=== PATIENT | male | born 1935 | race Caucasian/White ===

== ENCOUNTER 2017-07-10 10:12 | Emergency (ER) | payer MEDICARE, BC ==
[2017-07-10] MEDS ORDERED: METHYLPREDNISOLONE PF 125MG/VIAL IVP ONE (10:50)
[2017-07-10] MEDS ORDERED: DIPHENHYDRAMINE HCL IV 50 MG/ML VIAL IVP ONE (10:51)
[2017-07-10 11:33] LABS: EOS % 7.6 % (0-6); GRAN % 57.9 % (47-80); HEMATOCRIT 44.8 % (42.0-52.0); HEMOGLOBIN 14.7 gm/dl (14.0-18.0); LYMPH % 22.8 % (16-45); MEAN CELL VOLUME 93.7 fl (81-97); MEAN CORPUSCULAR HEMOGLOBIN 30.8 pg (27-33); MEAN CORPUSCULAR HGB CONC 32.8 g/dl (32-36); MEAN PLATELET VOLUME 8.5 fl (7.4-10.4); MONO % 11.7 % (0-9); PLATELET COUNT 233 K/uL (130-400); RED BLOOD COUNT 4.78 M/uL (4.40-5.70); WHITE BLOOD COUNT W/O DIFF 6.6 K/uL (4.2-12.2)
[2017-07-10 11:48] LABS: URINE APPEARANCE CLEAR; URINE BILIRUBIN NEGATIVE (NEGATIVE); URINE BLOOD MODERATE (NEGATIVE); URINE COLOR YELLOW; URINE GLUCOSE (UA) NEGATIVE (NEGATIVE); URINE KETONE NEGATIVE (NEGATIVE); URINE LEUKOCYTE ESTERASE MODERATE (NEGATIVE); URINE NITRITE NEGATIVE (NEGATIVE); URINE PROTEIN NEGATIVE (NEGATIVE); URINE UROBILINOGEN 0.2 E.U./dL (0.20 - 1.00)
[2017-07-10 12:00] LABS: URINE EPITHELIAL CELLS 0 - 2 (FEW); URINE WBC 0 - 2 (0-2/hpf)
[2017-07-10 12:21] LABS: ERYTHROCYTE SEDIMENTATION RATE 1 mm/hr (0-20)
[2017-07-10 12:33] LABS: BLOOD UREA NITROGEN 19 mg/dL (8-23); EST GLOMERULAR FILTRATION RATE > 60 mL/min; GLUCOSE,RANDOM 103 mg/dL (74-109)
[2017-07-10 12:34] LABS: ALB/GLOB RATIO 1.6 (1.1-1.8); ALKALINE PHOSPHATASE 41 U/L (40-129); ALT/SGPT 22 U/L (<41); AST/SGOT 20 U/L (10.0-50.0); TOTAL PROTEIN 6.5 g/dL (6.6-8.7)
--- NOTE | 2017-07-10 12:35 | Emergency Department Record ---
History of Present Illness - General Chief complaint: Rash Stated complaint: HIVES Time Seen by Provider: 07/10/17 10:45 Source: Patient Mode of Arrival: Ambulatory Limitations: No limitations - History of Present Illness Initial comments: pt has a rash on his palms and body. pt just finished a course of augmentin. pt is known to be allergic to penicillins.eriberto is itchy MD complaint: Rash Onset/Timin -: Days(s) Location: Generalized, L hand, R hand Severity: Moderate Quality: Aching Consistency: Constant Associated symptoms: Denies other symptoms - Related Data Home Medications Medication Instructions Recorded Confirmed Last Taken Ascorbic Acid [Vitamin C] 1,000 mg PO DAILY 07/10/17 07/10/17 1 Day Ago ~07/09/17 Aspirin 81 mg PO DAILY 07/10/17 07/10/17 1 Day Ago ~07/09/17 Cholecalciferol (Vitamin D3) 2,000 unit PO DAILY 07/10/17 07/10/17 1 Day Ago [Vitamin D3] ~07/09/17 Cranberry Fruit Extract [Cranberry] 500 mg PO DAILY 07/10/17 07/10/17 1 Day Ago ~07/09/17 Esomeprazole Magnesium [Nexium] 40 mg PO DAILY 07/10/17 07/10/17 1 Day Ago ~07/09/17 Lisinopril [Zestril] 2.5 mg PO DAILY 07/10/17 07/10/17 1 Day Ago ~07/09/17 Lorazepam [Ativan] 0.5 mg PO DAILY PRN 07/10/17 07/10/17 1 Day Ago ~07/09/17 Metformin HCl [Metformin HCl ER] 500 mg PO DAILY 07/10/17 07/10/17 1 Day Ago ~07/09/17 Rosuvastatin Calcium [Crestor] 2.5 mg PO DAILY 07/10/17 07/10/17 1 Day Ago ~07/09/17 Previous Rx's Medication Instructions Recorded Methylprednisolone [Medrol Dose 4 mg PO ASDIR #1 tab.ds.pk 07/10/17 Pack] Allergies Allergy/AdvReac Type Severity Reaction Status Date / Time amoxicillin [From Augmentin] Allergy RASH Verified 07/10/17 10:28 clavulanic acid Allergy RASH Verified 07/10/17 10:28 [From Augmentin] Penicillins Allergy RASH Verified 07/10/17 10:28 Travel Screening - Travel/Exposure Within Last 30 Days Have you traveled within the last 30 days?: No - Travel/Exposure Within Last Year Have you traveled outside the [place] in the last year?: No - Additonal Travel Details Have you been exposed to anyone with a communicable illness?: No - Travel Symptoms Symptom Screening: None Review of Systems Reviewed: No additional complaints except as noted below Constitutional: Reports: As per HPI. Denies: Chills, Fever, Malaise, Night sweats, Weakness, Weight change Eyes: Reports: As per HPI. Denies: Eye discharge, Eye pain, Photophobia, Vision change ENT: Reports: As per HPI. Denies: Congestion, Dental pain, Ear pain, Epistaxis , Hearing loss, Throat pain Respiratory: Reports: As per HPI. Denies: Cough, Dyspnea, Hemoptysis, Stridor, Wheezes Cardiovascular: Reports: As per HPI. Denies: Arrhythmia, Chest pain, Dyspnea on exertion, Edema, Murmurs, Orthopnea, Palpitations, Paroxysmal nocturnal dyspnea, Rheumatic Fever, Syncope Endocrine: Reports: As per HPI. Denies: Fatigue, Heat or cold intolerance, Polydipsia, Polyuria Gastrointestinal: Reports: As per HPI. Denies: Abdominal pain, Constipation, Diarrhea, Hematemesis, Hematochezia, Melena, Nausea, Vomiting Genitourinary: Reports: As per HPI. Denies: Dysuria, Frequency, Hematuria, Incontinence, Retention, Testicular pain, Testicular mass, Urgency Musculoskeletal: Reports: As per HPI. Denies: Arthralgia, Back pain, Gout, Joint swelling, Myalgia, Neck pain Skin: Reports: As per HPI. Denies: Bruising, Change in color, Change in hair/ nails, Lesions, Pruritus, Rash Neurological: Reports: As per HPI. Denies: Abnormal gait, Confusion, Headache, Numbness, Paresthesias, Seizure, Tingling, Tremors, Vertigo, Weakness Psychiatric: Reports: As per HPI. Denies: Anxiety, Auditory hallucinations, Depression, Homicidal thoughts, Suicidal thoughts, Visual hallucinations Hematological/Lymphatic: Reports: As per HPI. Denies: Anemia, Blood Clots, Easy bleeding, Easy bruising, Swollen glands Past Medical History - SOCIAL HISTORY Smoking Status: Never smoker Alcohol Use: None Drug Use: None - RESPIRATORY Hx Respiratory Disorders: No - CARDIOVASCULAR Hx Cardio Disorders: No - NEURO Hx Neuro Disorders: No - GI Hx Crohn's Disease: Yes Hx Reflux: Yes Hx Ulcer: Yes - Hx Bladder Problem: Yes ([place]) Comment:: left renal stent and urostomy - ENDOCRINE Hx Diabetes: Yes Hx Thyroid Disease: No - MUSCULOSKELETAL Hx Arthritis: Yes - PSYCH Hx Psych Problems: No - HEMATOLOGY/ONCOLOGY Hx Cancer: Yes (Bladder) Family Medical History Any Significant Family History?: Yes Physical Exam - General General Appearance: Alert, Oriented x3, Cooperative, Mild distress - Head Head exam: Normal inspection - Eye Eye exam: Normal appearance, PERRL, EOMI Pupils: Normal accommodation - ENT ENT exam: Normal exam, Mucous membranes moist, Normal external ear exam, Normal orophraynx Ear exam: Normal external inspection. negative: External canal tenderness Nasal Exam: Normal inspection. negative: Discharge, Sinus tenderness Mouth exam: Normal external inspection, Tongue normal Teeth exam: Normal inspection. negative: Dental caries Throat exam: Normal inspection. negative: Tonsillar erythema, Tonsillar exudate - Neck Neck exam: Normal inspection, Full ROM. negative: Tenderness - Respiratory Respiratory exam: Normal lung sounds bilaterally. negative: Respiratory distress - Cardiovascular Cardiovascular Exam: Regular rate, Normal rhythm, Normal heart sounds - GI/Abdominal GI/Abdominal exam: Soft, Normal bowel sounds. negative: Tenderness - Rectal Rectal exam: Deferred - exam: Deferred - Extremities Extremities exam: Normal inspection, Full ROM, Normal capillary refill. negative: Tenderness - Back Back exam: Reports: Normal inspection, Full ROM. Denies: Muscle spasm, Rash noted, Tenderness - Neurological Neurological exam: Alert, CN II-XII intact, Normal gait, Oriented X3 - Psychiatric Psychiatric exam: Normal affect, Normal mood - Skin Skin exam: Dry, Intact, Normal color, Warm Course Vital Signs 07/10/17 10:19 Temperature 97.4 F L Pulse Rate 90 Respiratory 18 Rate Blood Pressure 167/96 Pulse Ox 95 Medical Decision Making - Lab Data Result diagrams: 07/10/17 10:52 07/10/17 11:20 Lab Results 07/10/17 07/10/17 Range/Units 10:52 11:38 WBC 6.6 (4.2-12.2) K/uL RBC 4.78 (4.40-5.70) M/uL Hgb 14.7 (14.0-18.0) gm/dl Hct 44.8 (42.0-52.0) % MCV 93.7 (81-97) fl MCH 30.8 (27-33) pg MCHC 32.8 (32-36) g/dl RDW 14.0 (11.5-14.5) % Plt Count 233 (130-400) K/uL MPV 8.5 (7.4-10.4) fl Gran % 57.9 (47-80) % Lymphocytes % 22.8 (16-45) % Monocytes % 11.7 H (0-9) % Eosinophils % 7.6 H (0-6) % Basophils % 0.0 (0-6) % ESR 1 (0-20) mm/hr Urine Color Yellow Urine Appearance Clear Urine pH 7.0 (5.0-8.0) Ur Specific Kimball 1.010 (1.002-1.030) Urine Protein Negative (NEGATIVE) Urine Glucose (UA) Negative (NEGATIVE) Urine Ketones Negative (NEGATIVE) Urine Blood Moderate (NEGATIVE) Urine Nitrite Negative (NEGATIVE) Urine Bilirubin Negative (NEGATIVE) Urine Urobilinogen 0.2 (0.20 - 1.00) E.U./dL Ur Leukocyte Esterase Moderate H (NEGATIVE) Urine RBC 3 - 6 (NONE SEEN) Urine WBC 0 - 2 (0-2/hpf) Ur Epithelial Cells 0 - 2 (FEW) Disposition Disposition: Discharge Clinical Impression: Drug eruption, Erythema multiforme Disposition: Home, Self-Care Condition: (1) Good Instructions: Adverse Drug Reaction (ED) Additional Instructions: follow up with family doctor. return sooner if worse. benadryl every 6 hrs as needed Prescriptions: Methylprednisolone [Medrol Dose Pack] 4 mg PO ASDIR #1 tab.ds.pk Forms: Patient Portal Access Quality - Quality Measures Quality Measures: N/A - Blood Pressure Screening Does Patient Have Any of the Following: No Blood Pressure Classification: Hypertensive Reading Systolic Measurement: 167 Diastolic Measurement: 96 Screening for High Blood Pressure: < First Hypertensive BP, F/U Documented > [ [id number]] First Hypertensive Follow-up Interventions: Follow-up with rescreen GT 1 day and LT 4 weeks.
== END 2017-07-10 12:49 | disposition home or self-care (01) ==
LOC: ER 10:12
DX: L27.0 Generalized skin eruption due to drugs and medicaments taken internally (principal); L51.9 Erythema multiforme, unspecified; T36.0X5A Adverse effect of penicillins, initial encounter
CPT/HCPCS: 80053; 81001; 85025; 85651; 96374; 96375; 99284; J1200; J2930

== ENCOUNTER 2019-07-22 07:41 | Inpatient (IN) | payer MEDICARE, BC ==
[2019-07-22] MEDS ORDERED: 0.9% SODIUM CHLORIDE 250ML BAG IV ONE (07:55)
[2019-07-22] MEDS ORDERED: ACETAMINOPHEN 1,000 MG/100 ML BTL IVPB ONE (07:57)
--- NOTE | 2019-07-22 08:07 | Emergency Department Record ---
History of Present Illness - General Stated Complaint: BACK PAIN Time Seen by Provider: 07/22/19 07:43 Source: Patient, Family () Mode of Arrival: Ambulatory Limitations: No limitations - History of Present Illness Initial Comments: Pt with from home for complaint of left lower back pain onset at 4 AM. Unable to sleep since onset. Up walking unable to find a comfortable position. No radiation of the pain. Pt has hx of bladder cancer with urostomy for 18 years. No current cancer treatments. Has stent in left ureter that is repalced every 4 months with next scheduled in August with his urologist in [place]. Pain is sharp, no meds prior to coming to the ED. Pt states he is "constipated" with last good BM 2 days ago. Had suspected kidney stone 3 days ago with blood in urine and right flank pains. Had CT here with right hydronephrosis. Pt states he felt he passed the stone as he was pain free the past two days. No narcotic pain meds. Now pain on the left. No fever, vomiting. Onset/Timin -: Days(s) Similar Symptoms Previously: No Place: Home Radiation: None Severity: Severe Severity scale (1-10): 10 Quality: Aching, Sharp Consistency: Constant Improves With: Sitting upright Worsens With: Supine Context: Unknown Associated Symptoms: Denies other symptoms - Related Data Home Medications Medication Instructions Recorded Confirmed Last Taken Furosemide [Lasix] 20 mg PO ASDIR 07/22/19 07/22/19 Unknown Potassium Chloride 20 meq PO ASDIR 07/22/19 07/22/19 Unknown Previous Rx's Medication Instructions Recorded Ciprofloxacin HCl [Cipro] 500 mg PO Q12HR 7 Days #14 tablet 07/22/19 Levofloxacin [Levaquin Tab] 500 mg PO DAILY 7 Days #7 tab 07/22/19 Allergies Allergy/AdvReac Type Severity Reaction Status Date / Time amoxicillin [From Augmentin] Allergy RASH Verified 07/10/17 10:28 clavulanic acid Allergy RASH Verified 07/10/17 10:28 [From Augmentin] Penicillins Allergy RASH Verified 07/10/17 10:28 Travel Screening - Travel/Exposure Within Last 30 Days Have you traveled within the last 30 days?: No Review of Systems Constitutional: Denies: Chills, Fever, Weakness Eyes: Denies: Eye pain, Vision change ENT: Denies: Congestion, Throat pain Respiratory: Denies: Cough, Dyspnea Cardiovascular: Denies: Chest pain, Syncope Endocrine: Denies: Fatigue, Polyuria Gastrointestinal: Reports: Constipation. Denies: Abdominal pain, Diarrhea, Hematemesis, Nausea, Vomiting Genitourinary: Denies: Dysuria, Hematuria Musculoskeletal: Reports: As per HPI, Back pain Skin: Denies: Bruising Neurological: Denies: Confusion, Headache Psychiatric: Denies: Anxiety Hematological/Lymphatic: Denies: Anemia Past Medical History - SOCIAL HISTORY Smoking Status: Never smoker Alcohol Use: None Drug Use: None - RESPIRATORY Hx Respiratory Disorders: No - CARDIOVASCULAR Hx Cardio Disorders: No - NEURO Hx Neuro Disorders: No - GI Hx GI Disorders: Yes Hx Crohn's Disease: Yes Hx Reflux: Yes Hx Ulcer: Yes - Hx Genitourinary Disorders: Yes Hx Bladder Problem: Yes ([place]) Comment:: left renal stent and urostomy - ENDOCRINE Hx Endocrine Disorders: Yes Hx Diabetes: Yes Hx Thyroid Disease: No - MUSCULOSKELETAL Hx Musculoskeletal Disorders: Yes Hx Arthritis: Yes - PSYCH Hx Psych Problems: No - HEMATOLOGY/ONCOLOGY Hx Hematology/Oncology Disorders: Yes Hx Cancer: Yes (Bladder) Hx Chemotherapy: No Hx Radiation Therapy: No Family Medical History Any Significant Family History?: No Physical Exam - General General Appearance: Alert, Oriented x3, Cooperative, Moderate distress Limitations: No limitations - Head Head exam: Atraumatic, Normocephalic - Eye Eye exam: Normal appearance, PERRL - ENT ENT exam: Normal exam, Mucous membranes moist, Normal orophraynx Ear exam: Normal external inspection Nasal Exam: Normal inspection Mouth exam: negative: Drooling, Muffled voice Teeth exam: Normal inspection - Neck Neck exam: Normal inspection, Full ROM. negative: Lymphadenopathy - Respiratory Respiratory exam: Normal lung sounds bilaterally. negative: Respiratory distress, Rhonchi, Wheezes - Cardiovascular Cardiovascular Exam: Regular rate, Normal rhythm. negative: Tachycardia Peripheral Pulses: 2+: Radial (R), Radial (L) - GI/Abdominal GI/Abdominal exam: Soft, Normal bowel sounds. negative: Distended, Guarding, Rebound, Tenderness - exam: Other (urosomy with bag in right midline lower abd. Urine clear without gross blood. ) - Extremities Extremities exam: Normal inspection. negative: Tenderness - Back Back exam: Reports: CVA tenderness (L), Tenderness, Other (tender L3 lateral muscles without rash. ). Denies: CVA tenderness (R), Rash noted - Neurological Neurological exam: Alert, Oriented X3, Other (gait stable but pt side bent to left due to pain. ). negative: Motor sensory deficit Course Vital Signs 07/22/19 07:46 Respiratory 24 Rate - Reevaluation(s) Reevaluation #1: 07/22/19 08:11 seen with and RN. Pain in left flank, no abd pain. XRay and US ordered along with labs and UA. Pain meds provided prior to heading to radiology. Reevaluation #2: 07/22/19 09:21 recheck: Tylenol IV with some relief but pain is returning. Spoke with son in law and his physician Dr. Muñiz and reviewed findings. Dr. Ohara states he tolerates Toradol well. 30 mg IV toradol ordered. Await US report. XRay with large stool. Reevaluation #3: 07/22/19 10:44 P testing comfortable. US report shows no evidence of hydro right or left. XRay with increased stool and stent in place on left. Await return call from pt's [employer] Dr. Falk. Plan is for home with Mag Cit for constipation and Cipro for UTI. Follow with Dr. Falk in office. Reevaluation #4: 07/22/19 11:[address] Muñiz and he believes pt is allergic to Cipro. Recommends Levaquin. Will change script. Home with follow up. Medical Decision Making - Lab Data Result diagrams: 07/22/19 08:00 07/22/19 08:00 Disposition Disposition: Discharge Clinical Impression: Back pain Qualifiers: Back pain location: low back pain Chronicity: acute Back pain laterality: left Sciatica presence: without sciatica Qualified Code(s): M54.5 - Low back pain UTI (urinary tract infection) Qualifiers: Urinary tract infection type: acute cystitis Hematuria presence: without hematuria Qualified Code(s): N30.00 - Acute cystitis without hematuria Disposition: Home, Self-Care Condition: (2) Stable Instructions: Constipation (ED), Urinary Tract Infection in Men (ED), Low Back Strain (ED) Additional Instructions: Home. Follow up with Dr. Falk in 2-3 days Take Levaquin 500mg once a day for 7 days. (DO NOT take Cipro) Drink full bottle of Mag Citrate at home then drink two large glasses of water over the next few hours for constipation. Take tylenol or advil for back pains. Return to the ED as needed Prescriptions: Ciprofloxacin HCl [Cipro] 500 mg PO Q12HR 7 Days #14 tablet Levofloxacin [Levaquin Tab] 500 mg PO DAILY 7 Days #7 tab Quality - Quality Measures Quality Measures: N/A - Blood Pressure Screening Does Patient Have Any of the Following: No Blood Pressure Classification: Hypertensive Reading Systolic Measurement: 203 Diastolic Measurement: 127 Screening for High Blood Pressure: Patient Exclusion, Hx of HTN [G9944]
[2019-07-22 08:20] LABS: BASO % 0.1 % (0-6); EOS % 0.9 % (0-6); GRAN % 73.9 % (47-80); HEMOGLOBIN 14.9 gm/dl (14.0-18.0); MEAN CELL VOLUME 94.8 fl (81-97); MEAN CORPUSCULAR HEMOGLOBIN 30.7 pg (27-33); MEAN CORPUSCULAR HGB CONC 32.4 g/dl (32-36); MEAN PLATELET VOLUME 8.8 fl (7.4-10.4); MONO % 7.1 % (0-9); PLATELET COUNT 249 K/uL (130-400); RED BLOOD COUNT 4.85 M/uL (4.40-5.70); RED CELL DISTRIBUTION WIDTH 14.2 % (11.5-14.5); WHITE BLOOD COUNT W/O DIFF 9.2 K/uL (4.2-12.2)
[2019-07-22 08:30] LABS: BLOOD UREA NITROGEN 19 mg/dL (8-23); CREATININE 1.2 mg/dL (0.7-1.2); EST GLOMERULAR FILTRATION RATE > 60 mL/min
[2019-07-22 08:33] LABS: GLUCOSE,RANDOM 159 mg/dL (74-109)
[2019-07-22 08:44] LABS: URINE COLOR YELLOW
[2019-07-22 08:45] LABS: URINE APPEARANCE SL CLOUDY; URINE BILIRUBIN NEGATIVE (NEGATIVE); URINE GLUCOSE (UA) NEGATIVE (NEGATIVE); URINE KETONE NEGATIVE (NEGATIVE); URINE UROBILINOGEN 0.2 E.U./dL (0.20 - 1.00)
[2019-07-22 08:46] LABS: URINE BLOOD LARGE (NEGATIVE); URINE LEUKOCYTE ESTERASE LARGE (NEGATIVE); URINE NITRITE NEGATIVE (NEGATIVE)
[2019-07-22 08:48] LABS: URINE BACTERIA 4+; URINE RBC >50 (NONE SEEN); URINE SQUAMOUS EPITHELIAL CELL 0 - 2 /hpf; URINE TRIPLE PHOSPHATE CRYSTAL 3+ /hpf; URINE WBC >50 (0-2/hpf)
[2019-07-22] MEDS ORDERED: KETOROLAC 30 MG/ML VIAL IVP ONE (09:20)
--- NOTE | 2019-07-22 09:36 | RADIOLOGY REPORT ---
EXAMINATION: Abdomen Single View EXAM DATE: 07/22/2019 9:21 AM TECHNIQUE: Single view INDICATION: left flank pain/constipation COMPARISON: None ENCOUNTER: Not applicable FINDINGS: Bowel: Moderate amount of retained fecal debris in the colon. Bowel gas pattern otherwise nonspecific . Abnormal Calcifications: None. Bones: 20 degrees of levoscoliosis noted with degenerative changes in the lumbar spine. Other Findings: Retrograde pigtail catheter in the projection of an ileal conduit and extending into the left renal collecting system. Multiple clips consistent with postsurgical changes in the pelvis b ilaterally. IMPRESSION: Nonspecific bowel gas pattern. Ileal conduit catheterization with retrograde pigtail catheter in the left renal collecting system. Surgical clips in the pelvis. Dictated by: Cm Bowles MD on 07/22/2019 9:23 AM. .
--- NOTE | 2019-07-22 09:42 | ULTRASOUND REPORT ---
EXAMINATION: Kidneys and Bladder Ultrasound EXAM DATE: 07/22/2019 9:16 AM TECHNIQUE: Ultrasound of the kidneys and bladder. INDICATION: recent right renal stone/hydronephrosis COMPARISON: CT abdomen and pelvis 07/19/2019. FINDINGS: Right Kidney: The right kidney measures 11.8 x 5 x 5 cm (length x AP x width) in dimension. The echo genicity of the kidney is normal. There is no hydronephrosis. No abnormal solid masses are seen. A large 5.9 x 4.2 x 5.1 cm cyst at the upper pole of the right kidney shows thin nearly imperceptible pope with no vascularity on Doppler evaluation. Left Kidney: The left kidney measures 13.6 x 5.9 x 4.8 cm (length x AP x width) in dimension. The ec hogenicity of the kidney is normal. There is no hydronephrosis. No abnormal cysts or masses are p resent. 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 ADDITIONAL FINDINGS: None. IMPRESSION: 1. No hydronephrosis to indicate obstructive uropathy. Interval resolution of the right hydronephrosi s seen on 07/19/2019. 2. No renal calculi are seen. 3. 5.9 cm cyst at the upper pole of the right kidney. Dictated by: Satya Reid DO on 07/22/2019 9:32 AM. .
[2019-07-22] MEDS ORDERED: MORPHINE SULFATE 5 MG/ML VIAL IVP ONE (10:48)
[2019-07-22] MEDS ORDERED: CIPROFLOXACIN HCL 500 MG TABLET PO ONE (10:48)
[2019-07-22] MEDS ORDERED: MAGNESIUM CITRATE 296 ML BTL PO ONE ×2 (10:49→15:08)
[2019-07-22] MEDS ORDERED: 0.9 % SODIUM CHLORIDE 500ML 500 ML IV ONE (12:36)
[2019-07-22] MEDS ORDERED: ONDANSETRON HCL IV 4 MG/2 ML VIAL IVP ONE (12:36)
[2019-07-22] MEDS ORDERED: 0.9 % SODIUM CHLORIDE 1000ML 1,000 ML IV ONE (13:30)
[2019-07-22] MEDS ORDERED: ONDANSETRON HCL IV 4 MG/2 ML VIAL IVP PRN (13:30)
[2019-07-22] MEDS ORDERED: IBUPROFEN 400 MG TABLET PO PRN ×2 (13:30→22:39)
--- NOTE | 2019-07-22 13:46 | History & Physical ---
History of Present Illness - Date of Service Date of Service for History & Physical: 07/22/19 - History of Present Illness Admitting Diagnosis: Acute UTI with fever History of Present Illness: 07/22/19: Patient presented to ER for left lower back pain beginning at 0400. Patient unable to go back to sleep after pain onset. Patient has a history of bladder cancer with a urostomy x 18 years. Patient is not currently receiving treatment for cancer. Patient had a stent placed in his left ureter and is changed every 4 months (next due August). Patient sees a Urologist in [place]. Patient had a suspected kidney stone 3 days ago with right-sided flank pain and hematuria. Patient had a CT done during that visit which showed right hydronephrosis. Nori ent did report that the stone passed approx. 2 days ago and had been pain free since then. Patient is now having left-sided pain. Patient also reported having constipation x2 days, with no BM. Patient initially denied fever and vomiting upon arrival to ER. He developed a fever of 101.9F, increased pain, and nausea during his stay. Oral doxycycline recommended by patient's urologist for treatment. Patient admitted for nausea and pain control p/Dr. Ashley. PCP: Maribel Falk (drafting technician & PCP), previously Dr. Muñiz (drafting technician, patient's son in-law) ED Course: Vital Signs Temp Pulse Resp BP Pulse Ox 07/22/19 12:13 101.9 F H 07/22/19 11:46 101.5 F H 98 H 20 126/72 96 07/22/19 10:50 98.3 F 114 H 28 H 203/127 96 07/22/19 07:59 97.8 F 72 24 155/97 99 07/22/19 07:46 24 Intake & Output 07/20/19 07/21/19 07/22/19 07/23/19 06:59 06:59 06:59 06:59 Weight 238 lb Laboratory 07/22/19 07/22/19 07/22/19 08:00 08:00 08:00 WBC 9.2 RBC 4.85 Hgb 14.9 Hct 46.0 MCV 94.8 MCH 30.7 MCHC 32.4 RDW 14.2 Plt Count 249 MPV 8.8 Gran % 73.9 Lymphocytes % 18.0 Monocytes % 7.1 Eosinophils % 0.9 Basophils % 0.1 Absolute Neutrophils 6.80 Sodium 138 Potassium 4.4 Chloride 99 Carbon Dioxide 22.0 Anion Gap 17.0 H BUN 19 Creatinine 1.2 Estimated GFR > 60 Random Glucose 159 H Calcium 9.5 Urine Color Yellow Urine Appearance Sl cloudy Urine pH 8.5 Ur Specific Brandon 1.010 Urine Protein 30 mg/dl H Urine Glucose (UA) Negative Urine Ketones Negative Urine Blood Large H Urine Nitrite Negative Urine Bilirubin Negative Urine Urobilinogen 0.2 Ur Leukocyte Esterase Large H Urine RBC >50 Urine WBC >50 U Non-Squamous Epi Cells 0 - 2 Triple Phos Crystals 3+ Urine Bacteria 4+ Past Surgical History Date/Surgery bilateral total knee appy bladder for CA tonsils hammer toe cataract Past Medical History Hx Respiratory Disorders No Hx Cardiovascular Disorders No Hx Neurological Disorders No Hx Gastrointestinal Disorders Yes Hx Crohn's Disease Yes Hx Gastroesophageal Reflux Yes Hx Ulcer Yes Hx Genitourinary Disorders Yes Hx Bladder Problem Yes: CA Comment: left renal stent and urostomy Hx Endocrine Disorders Yes Hx Diabetes Yes Hx Thyroid Disease No Hx Musculoskeletal Disorders Yes Hx Arthritis Yes Hx Psychiatric Problems No Hx Hematology/Oncology Disorders Yes Hx Cancer Yes: Bladder * Hx Chemotherapy No * Hx Radiation Therapy No Social History Alcohol None Drug Use None Smoking Status Smoking Status Never smoker Family Medical History Any Significant Family Hx? No Medications Acetaminophen (Tylenol 500mg Tab) 1,000 mg PO Q6H PRN PRN Reason: PAIN - MILD(1-4)/FEVER Doxycycline Hyclate (Vibramycin) 100 mg PO BID BOBBY Sodium Chloride () 500 mls @ 500 mls/hr IV .Q1H ONE Sodium Chloride () 1,000 mls @ 100 mls/hr IV .Q10H ONE Ibuprofen (Motrin 400mg) 400 mg PO Q8H PRN PRN Reason: PAIN - MILD (1-4) Ondansetron HCl (Zofran) 4 mg IVP Q4H PRN PRN Reason: NAUSEA Ciprofloxacin (Cipro) 500 mg PO NOW ONE Acetaminophen (Ofirmev) 1,000 mg in 100 mls @ 400 mls/hr IVPB NOW ONE Ketorolac Tromethamine (Toradol) 30 mg IVP NOW ONE Magnesium Citrate (Citrate Of Magnesia) 150 ml PO ONCE ONE Morphine Sulfate (Morphine Sulfate) 4 mg IVP NOW ONE Ondansetron HCl (Zofran) 4 mg IVP NOW ONE Sodium Chloride () 250 ml IV BOLUS ONE Problems Back pain (Acute) M54.9 UTI (urinary tract infection) (Acute) N39.0 07/22/19: Patient A&Ox4 upon examination. Patient resting comfortably in bed after getting down to Med/Surg floor. Patient states pain and nausea have improved since he was in the ER. Pain is not limited to left flank, patient states it is "generalized". Patient's to bring in night time bag for urostomy. Patient takes care of own urostomy at home. Patient denies cough, CP, BAKER, or SOB. Patient explained POC and all questions answered. Patient will stay overnight for IV fluids, pain and nausea control with likely D/C tomorrow and continue PO antibiotics (07/23/19). Travel Screening - Travel/Exposure Within Last 30 Days Have you traveled within the last 30 days?: No Review of Systems Constitutional: Denies: Chills, Fever, Weakness Eyes: Denies: Eye pain, Vision change ENT: Denies: Congestion, Throat pain Respiratory: Denies: Cough, Dyspnea Cardiovascular: Denies: Chest pain, Syncope Endocrine: Denies: Fatigue, Polyuria Gastrointestinal: Reports: Constipation. Denies: Abdominal pain, Diarrhea, Hematemesis, Nausea, Vomiting Genitourinary: Denies: Dysuria, Hematuria Musculoskeletal: Reports: As per HPI, Back pain Skin: Denies: Bruising Neurological: Denies: Confusion, Headache Psychiatric: Denies: Anxiety Hematological/Lymphatic: Denies: Anemia Past Medical History - SOCIAL HISTORY Smoking Status: Never smoker Alcohol Use: None Drug Use: None - RESPIRATORY Hx Respiratory Disorders: No - CARDIOVASCULAR Hx Cardio Disorders: No - NEURO Hx Neuro Disorders: No - GI Hx GI Disorders: Yes Hx Crohn's Disease: Yes Hx Reflux: Yes Hx Ulcer: Yes - Hx Genitourinary Disorders: Yes Hx Bladder Problem: Yes (CA) Comment:: left renal stent and urostomy - ENDOCRINE Hx Endocrine Disorders: Yes Hx Diabetes: Yes Hx Thyroid Disease: No - MUSCULOSKELETAL Hx Musculoskeletal Disorders: Yes Hx Arthritis: Yes - PSYCH Hx Psych Problems: No - HEMATOLOGY/ONCOLOGY Hx Hematology/Oncology Disorders: Yes Hx Cancer: Yes (Bladder) Hx Chemotherapy: No Hx Radiation Therapy: No Family Medical History Any Significant Family History?: No H&P Meds/Allergies - Allergies Allergies: Allergies Allergy/AdvReac Type Severity Reaction Status Date / Time amoxicillin [From Augmentin] Allergy RASH Verified 07/10/17 10:28 clavulanic acid Allergy RASH Verified 07/10/17 10:28 [From Augmentin] Penicillins Allergy RASH Verified 07/10/17 10:28 - Home Medications Home Medications Medication Instructions Recorded Confirmed Last Taken Furosemide [Lasix] 20 mg PO Q48H 07/22/19 07/22/19 Unknown Potassium Chloride 20 meq PO Q48H 07/22/19 07/22/19 Unknown Previous Rx's Medication Instructions Recorded Ciprofloxacin HCl [Cipro] 500 mg PO Q12HR 7 Days #14 tablet 07/22/19 Levofloxacin [Levaquin Tab] 500 mg PO DAILY 7 Days #7 tab 07/22/19 - Active Medications Active Medications: Current Medications Doxycycline Hyclate (Vibramycin) 100 mg PO BID BOBBY Sodium Chloride () 500 mls @ 500 mls/hr IV .Q1H ONE Stop: 07/22/19 13:35 Last Admin: 07/22/19 12:59 Dose: 500 mls/hr Documented by: Physical Exam - Vital Signs Vital Signs: Vital Signs - Last 24 Hrs Temp Pulse Resp BP Pulse Ox 07/22/19 12:13 101.9 F H 07/22/19 11:46 101.5 F H 98 H 20 126/72 96 07/22/19 10:50 98.3 F 114 H 28 H 203/127 96 07/22/19 07:59 97.8 F 72 24 155/97 99 07/22/19 07:46 24 - General General Appearance: Alert, Oriented x3, Cooperative, No acute distress Limitations: No limitations - Head Head exam: Atraumatic, Normocephalic, Normal inspection - Neck Neck exam: Normal inspection, Full ROM. negative: Tenderness - Respiratory Respiratory exam: Normal lung sounds bilaterally. negative: Rales, Respiratory distress, Rhonchi, Stridor, Wheezes - Cardiovascular Cardiovascular Exam: Regular rate, Normal rhythm, Normal heart sounds. negative: Tachycardia Peripheral Pulses: 2+: Radial (R), Radial (L), Dorsalis Pedis (R), Dorsalis Pedis (L) - GI/Abdominal GI/Abdominal exam: Soft, Normal bowel sounds. negative: Distended, Guarding, Rebound, Tenderness - Rectal Rectal exam: Deferred - exam: Deferred, Other (Urosomy right midline lower abd. ) - Extremities Extremities exam: Normal inspection, Full ROM, Normal capillary refill, Pedal edema (LLE trace). negative: Tenderness - Back Back exam: Reports: Normal inspection, Tenderness (generalized p/pt). Denies: CVA tenderness (R), Rash noted - Neurological Neurological exam: Alert, Normal gait (painful), Oriented X3. negative: Motor sensory deficit - Psychiatric Psychiatric exam: Normal affect, Normal mood - Skin Skin exam: Dry, Intact, Warm Results - Labs Result Diagrams: 07/22/19 08:00 07/22/19 08:00 Labs Last 24 Hours: Laboratory Results - last 24 hr 07/22/19 07/22/19 07/22/19 08:00 08:00 08:00 WBC 9.2 RBC 4.85 Hgb 14.9 Hct 46.0 MCV 94.8 MCH 30.7 MCHC 32.4 RDW 14.2 Plt Count 249 MPV 8.8 Gran % 73.9 Lymphocytes % 18.0 Monocytes % 7.1 Eosinophils % 0.9 Basophils % 0.1 Absolute Neutrophils 6.80 Sodium 138 Potassium 4.4 Chloride 99 Carbon Dioxide 22.0 Anion Gap 17.0 H BUN 19 Creatinine 1.2 Estimated GFR > 60 Random Glucose 159 H Calcium 9.5 Urine Color Yellow Urine Appearance Sl cloudy Urine pH 8.5 Ur Specific Brandon 1.010 Urine Protein 30 mg/dl H Urine Glucose (UA) Negative Urine Ketones Negative Urine Blood Large H Urine Nitrite Negative Urine Bilirubin Negative Urine Urobilinogen 0.2 Ur Leukocyte Esterase Large H Urine RBC >50 Urine WBC >50 U Non-Squamous Epi Cells 0 - 2 Triple Phos Crystals 3+ Urine Bacteria 4+ - Imaging and Cardiology Abdominal x-ray Status: Report reviewed (Large stool present) US - abdomen Status: Report reviewed (Hydronephrosis resolved) VTE H&P Assessment - Risk for VTE Risk for VTE: Yes Risk Level: High Risk Assessment Date: 07/22/19 Risk Assessment Time: 13:49 VTE Orders Placed or Will Be Placed: Yes VTE Reason for No Prophylaxis: Contraindicated (HFR, hematuria) Plan - Detailed Diagnosis and Plan (1) UTI (urinary tract infection) Current Visit: Yes Status: Acute Qualifiers: Urinary tract infection type: acute cystitis Hematuria presence: without hematuria Qualified Code(s): N30.00 - Acute cystitis without hematuria Base Code: N39.0 - URINARY TRACT INFECTION, SITE NOT SPECIFIED Comment: 07/22/19: -Hx Bladder Ca., urostomy x18 years, no current treatment for Cancer -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 New onset left flank pain 0400. 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 -Renal US: no hydronephrosis (right side resolved), no stones, 5.9cm cyst right kidney -Treat UTI with PO Doxycycline per urologist (2) Back pain Current Visit: Yes Status: Acute Qualifiers: Back pain location: low back pain Chronicity: acute Back pain laterality: left Sciatica presence: without sciatica Qualified Code(s): M54.5 - Low back pain Base Code: M54.9 - DORSALGIA, UNSPECIFIED Comment: 07/22/19: -IV Ofirmev with minimal relief, add IV Toradol per urologist -No narcotic use at home -Left flank pain, sudden onset 0400 -Recent right kidney stone 3 days 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 Pain free x 2 days BRUSH HOLDER INSPECTOR -CBC/CMP unremarkable -UA: 30 mg/dl Protein, Large Blood, Large Leukocytes, 3+ Triple Phos Crystals, 4+ Bacteria -Treating UTI with PO Doxycycline p/urologist recommendation (3) Nausea & vomiting Current Visit: Yes Status: Acute Base Code: R11.2 - NAUSEA WITH VOMITING, UNSPECIFIED Comment: 07/22/19: -Nausea without vomiting secondary to pain -Zofran 4mg IV Q4H PRN -IV NS 100ml/hr -Regular Diet, advance as tolerated (4) DVT prophylaxis Current Visit: Yes Status: Acute Base Code: Z29.9 - ENCOUNTER FOR PROPHYLACTIC MEASURES, UNSPECIFIED Comment: 07/22/19: -Hold Lovenox secondary to hematuria -HFR: Signage on door, yellow socks, fall risk bracelet applied -Nursing to encourage ambulation in room -SCD while in bed (5) Full code status Current Visit: Yes Status: Acute Base Code: Z78.9 - OTHER SPECIFIED HEALTH STATUS Comment: 07/22/19: -Full code status this admission
[2019-07-22] MEDS: DOXYCYCLINE HYCLATE 100 MG CAPSULE PO SCH ×2 (14:04→21:25)
[2019-07-22] MEDS: ACETAMINOPHEN 500 MG TABLET PO PRN (18:51)
[2019-07-22] MEDS: DOCUSATE SODIUM 100 MG CAPSULE PO SCH (21:25)
[2019-07-22] MEDS ORDERED: ACETAMINOPHEN 1,000 MG/100 ML BTL IVPB PRN (22:40)
[2019-07-23] MEDS: ACETAMINOPHEN 500 MG TABLET PO PRN ×2 (02:24→21:41)
[2019-07-23] MEDS: PANTOPRAZOLE SODIUM 40 MG TABLET PO SCH (06:15)
[2019-07-23 06:46] LABS: HEMATOCRIT 41.4 % (42.0-52.0); HEMOGLOBIN 12.8 gm/dl (14.0-18.0); MEAN CELL VOLUME 96.5 fl (81-97); MEAN CORPUSCULAR HEMOGLOBIN 29.8 pg (27-33); MEAN CORPUSCULAR HGB CONC 30.9 g/dl (32-36); MEAN PLATELET VOLUME 9.2 fl (7.4-10.4); PLATELET COUNT 100 K/uL (130-400); RED BLOOD COUNT 4.29 M/uL (4.40-5.70); RED CELL DISTRIBUTION WIDTH 14.5 % (11.5-14.5); WHITE BLOOD COUNT W/O DIFF 8.3 K/uL (4.2-12.2)
[2019-07-23 07:00] LABS: CREATININE 2.6 mg/dL (0.7-1.2)
[2019-07-23 07:21] LABS: ABSOLUTE NEUTROPHIL COUNT 7.13
[2019-07-23 07:22] LABS: PLATELET ESTIMATE NORMAL (NORMAL)
[2019-07-23] MEDS ORDERED: METFORMIN 500 MG TABLET PO SCH (10:00)
[2019-07-23] MEDS ORDERED: ATORVASTATIN 20 MG TABLET PO SCH (10:00)
[2019-07-23] MEDS ORDERED: FUROSEMIDE 20 MG TABLET PO SCH (10:00)
[2019-07-23] MEDS ORDERED: POTASSIUM CHLORIDE 20 MEQ TABLET PO SCH (10:00)
[2019-07-23] MEDS: DOCUSATE SODIUM 100 MG CAPSULE PO SCH ×2 (10:02→21:17)
[2019-07-23] MEDS: DOXYCYCLINE HYCLATE 100 MG CAPSULE PO SCH ×3 (10:04→21:16)
[2019-07-23] MEDS: LISINOPRIL 5 MG TABLET PO SCH (10:04)
[2019-07-23] MEDS ORDERED: LEVOFLOXACIN 500MG IVPB 500 MG/100 ML BAG IVPB ONE (10:55)
[2019-07-23] MEDS ORDERED: ACETAMINOPHEN 325 MG TAB PO PRN (10:56)
--- NOTE | 2019-07-23 11:28 | Physician Progress Note ---
Subjective - Date Date of Physician Progress Note: 07/23/19 - Subjective Subjective Comment: The patient is evaluated at bedside this morning and complains of generalized weakness and bilateral shoulder numbness. He states that he has beenable to sit at the side of the bed but still feels a little weak. His main concern is his right shoulder numbness with radiation to his hands. He says that he has had shoulder issues for years but within the last year his shoulders have gotten worse. Objective - Vital Signs Vital Signs: Vital Signs - Last 24 Hrs Temp Pulse Pulse Resp BP BP BP 07/23/19 09:38 98.3 F 63 16 120/66 07/23/19 08:41 18 07/23/19 08:02 84 18 07/23/19 06:00 98.1 F 18 07/23/19 00:21 98.0 F 70 20 07/22/19 22:54 98.1 F 07/22/19 21:00 101 H 20 07/22/19 20:35 07/22/19 20:30 102.6 F H 101 H 20 109/60 07/22/19 13:41 98.3 F 100 H 16 140/87 07/22/19 13:33 99.8 F H 100 H 24 123/74 07/22/19 12:13 101.9 F H 07/22/19 11:46 101.5 F H 98 H 20 126/72 Pulse Ox 07/23/19 09:38 95 07/23/19 08:41 91 L 07/23/19 08:02 92 L 07/23/19 06:00 93 L 07/23/19 00:21 94 L 07/22/19 22:54 07/22/19 21:00 07/22/19 20:35 94 L 07/22/19 20:30 86 L 07/22/19 13:41 95 07/22/19 13:33 100 07/22/19 12:13 07/22/19 11:46 96 - General General Appearance: Alert, Oriented x3, Cooperative, No acute distress Limitations: No limitations - Head Head exam: Atraumatic, Normocephalic, Normal inspection - Eye Eye exam: Normal appearance, PERRL - ENT ENT exam: Normal exam, Mucous membranes moist, Normal orophraynx Ear exam: Normal external inspection Nasal Exam: Normal inspection Mouth exam: negative: Drooling, Muffled voice Teeth exam: Normal inspection - Neck Neck exam: Normal inspection, Full ROM. negative: Tenderness - Respiratory Respiratory exam: Normal lung sounds bilaterally. negative: Rales, Respiratory distress, Rhonchi, Stridor, Wheezes - Cardiovascular Cardiovascular Exam: Regular rate, Normal rhythm, Normal heart sounds. negative: Tachycardia Peripheral Pulses: 2+: Radial (R), Radial (L), Dorsalis Pedis (R), Dorsalis Pedis (L) - GI/Abdominal GI/Abdominal exam: Soft, Normal bowel sounds. negative: Distended, Guarding, Rebound, Tenderness - Rectal Rectal exam: Deferred - exam: Deferred, Other (Urosomy right midline lower abd. ) - Extremities Extremities exam: Normal inspection, Full ROM, Normal capillary refill, Pedal edema (LLE trace). negative: Tenderness - Back Back exam: Reports: Normal inspection, Tenderness (generalized p/pt). Denies: CVA tenderness (R), Rash noted - Neurological Neurological exam: Alert, Normal gait (painful), Oriented X3. negative: Motor sensory deficit - Psychiatric Psychiatric exam: Normal affect, Normal mood - Skin Skin exam: Dry, Intact, Warm Assessment and Plan - Inpatient Certification Inpatient Certification: Fever, weakness and UTI 07/23/19 11:32 - Assessment and Plan (1) Acute renal insufficiency Current Visit: Yes Status: Acute Base Code: N28.9 - DISORDER OF KIDNEY AND URETER, UNSPECIFIED Comment: 07/23/18: - Bun/Cr: 19/1.2 --> 35/2.6 - Likely 2/[address], dehydration and UTI. - Replete fluids with 0.9% @ 75mL/hr. - Recheck BMP in the morning. Renal dose medications per pharmacy. (2) Radicular pain in right arm Current Visit: Yes Status: Acute Base Code: M79.2 - NEURALGIA AND NEURITIS, UNSPECIFIED Comment: 07/23/19: - Right shoulder pain with radiation to the hand. No neck pain. - Tylenol 650mg Q4H PRN, Neurontin 100mg TID. 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 Falnk pain has resolved. -UA: 30mg/dl Protein, Large blood, Large Leukocytes, 3+ Triple Phos Crystals, 4+ Bacteria. UCX + for klebsiella with sensitivity to multiple medications. Will start Levaquin 500mg daily. Pharmacy to dose renal. - Fevers resolved. 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 (4) DVT prophylaxis Current Visit: Yes Status: Acute Base Code: Z29.9 - ENCOUNTER FOR PROPHYLACTIC MEASURES, UNSPECIFIED Comment: 07/23/19: - Lovenox 30mg daily 2/2 to kidney function. -Nursing to encourage ambulation in room -SCD while in bed (5) Full code status Current Visit: Yes Status: Acute Base Code: Z78.9 - OTHER SPECIFIED HEALTH STATUS Comment: 07/23/19: -Full code status this admission Results - Labs Result Diagrams: 07/23/19 06:14 07/23/19 06:14 Labs Last 24 Hours: Laboratory Results - last 24 hr 07/23/19 07/23/19 06:14 06:14 WBC 8.3 RBC 4.29 L Hgb 12.8 L Hct 41.4 L MCV 96.5 MCH 29.8 MCHC 30.9 L RDW 14.5 Plt Count 100 L MPV 9.2 Neutrophils % 69.0 Band Neutrophils % 17.0 H Eosinophils % Not Reportable Basophils % Not Reportable Absolute Neutrophils 7.13 Lymphocytes 10.0 L Monocytes 3.0 Basophils 0.0 Platelet Estimate Normal RBC Morphology Normal Eosinophil Count 1.0 Sodium 139 Potassium 5.0 H Chloride 102 Carbon Dioxide 22.0 Anion Gap 15.0 BUN 35 H Creatinine 2.6 H Estimated GFR 25 Random Glucose 86 Calcium 7.9 L DVT/PE Assessment - Risk for VTE Risk for VTE: No Risk Level: High Risk Assessment Date: 07/22/19 Risk Assessment Time: 13:49 VTE Orders Placed or Will Be Placed: Yes VTE Reason for No Prophylaxis: Contraindicated (HFR, hematuria) - Active Medicaitons Current Medications: Current Medications Acetaminophen (Tylenol 500mg Tab) 1,000 mg PO Q6H PRN PRN Reason: PAIN - MILD(1-4)/FEVER Last Admin: 07/23/19 02:24 Dose: 1,000 mg Documented by: Acetaminophen (Tylenol 325mg) 650 mg PO Q4H PRN PRN Reason: PAIN - MOD TO SEVERE (5-10) Last Admin: 07/23/19 11:15 Dose: 650 mg Documented by: Atorvastatin Calcium (Lipitor) 10 mg PO Q48H [facility] Last Admin: 07/23/19 10:03 Dose: 10 mg Documented by: Docusate Sodium (Colace) 100 mg PO BID [facility] Last Admin: 07/23/19 10:02 Dose: 100 mg Documented by: Doxycycline Hyclate (Vibramycin) 100 mg PO BID [facility] Last Admin: 07/23/19 10:29 Dose: Not Given Documented by: Furosemide (Lasix) 20 mg PO Q48H [facility] Last Admin: 07/23/19 10:03 Dose: 20 mg Documented by: Gabapentin (Neurontin) 100 mg PO TID [facility] Acetaminophen (Ofirmev) 1,000 mg in 100 mls @ 400 mls/hr IVPB Q6H PRN PRN Reason: PAIN - MILD(1-4)/FEVER Levofloxacin/Dextrose (Levaquin 500mg Ivpb) 500 mg in 100 mls @ 125 mls/hr IVPB PREOP ONE Stop: 07/23/19 11:42 Last Admin: 07/23/19 11:16 Dose: 125 mls/hr Documented by: Ibuprofen (Motrin 400mg) 400 mg PO Q8H PRN PRN Reason: PAIN - MILD(1-4)/FEVER Lisinopril (Zestril) 2.5 mg PO DAILY [facility] Last Admin: 07/23/19 10:04 Dose: 2.5 mg Documented by: Metformin HCl (Glucophage Ir) 250 mg PO Q48H [facility] Last Admin: 07/23/19 10:02 Dose: 250 mg Documented by: Ondansetron HCl (Zofran) 4 mg IVP Q4H PRN PRN Reason: NAUSEA Pantoprazole Sodium (Protonix) 40 mg PO DAILYAC [facility] Last Admin: 07/23/19 06:15 Dose: 40 mg Documented by: Potassium Chloride (Klor-Con) 20 meq PO Q48H [facility] Last Admin: 07/23/19 10:03 Dose: Not Given Documented by: AMI Plan - Labs Result Diagrams: 07/23/19 06:14 07/23/19 06:14
[2019-07-23] MEDS: GABAPENTIN 100 MG CAPSULE PO SCH ×4 (12:10→22:09)
[2019-07-23] MEDS ORDERED: ENOXAPARIN 30 MG/0.3 ML SYR SQ SCH (13:15)
--- NOTE | 2019-07-23 15:40 | Rehab Evaluation ---
Patient Information - Patient Information Diagnosis: Acute UTI with fever Ordered Treatment: OT Evaluate and Treat Status: Initial Evaluation Surgery: No Past Medical/Surgical Hx: PAST MEDICAL/SURGICAL HISTORY Past Surgical History bilateral total knee appy bladder for CA tonsils hammer toe cataract PMH - Respiratory Hx Respiratory Disorders No PMH - Cardiovascular Hx Cardiovascular Disorders No PMH - Neuro Hx Neurological Disorders No PMH - GI Hx Gastrointestinal Disorders Yes Hx Crohn's Disease Yes Hx Gastroesophageal Reflux Yes Hx Ulcer Yes PMH - Hx Genitourinary Disorders Yes Hx Bladder Problem Yes: 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 He has 1 step, a platform and another step at the entrance, no railings. He has a walk in shower with grab bars and a bathtub as well as a standard height toilet, no grab bars. He typically stands to shower. He is responsible for washing dishes, running the vacuum and all outdoor chores. His is responsible for laundry and meal prep. He has a walker but ambulated Indly prior to admission.) Social History: Detail (Supportive family.) Precautions: [place], Fall - Time With Patient Total Time Spent With Patient (Min): 35 Treatment Procedures: Detail (OT eval low complexity) Subjective Information - Subjective Information Per Patient Objective Data - Pain Pain Present: Yes (7/10 pain in left hand) - Mental Status Patient Orientation: Oriented x3 - Visual Perception Appears within normal limits for therapeutic activities - ROM Not within normal limits (Juan Ramon UE AROM WNL with exception of left hand finger flexion which was slightly limited at end range.) - Strength/Tone Not within normal limits (Juan Ramon UE strength 5/5 with exception of left hand group cio strength which was 4/5) - Coordination Deficit (Pt reports right UE is WNL, he has difficulty with holding objects with left hand.) - Transfers Independent (Pt able to complete sit to stand from recliner with CG assist.) - Balance Balance Sitting: Good Balance Standing: Fair - Sensation Intact (Pt reports no numbness in juan ramon UEs at this time.) - Gait Detail (Pt able to ambulate a short distance with 2 wheeled walker and CG assist. He was very fatigued with ambulation.) - ADL's/IADL's Detail (ADLs not formally assessed at this time.) Therapy Assessment - Therapy Assessment Detail (Pt presents with decreased endurance and overall activity tolerance as well as decreased left hand function and increased pain. Pt reports his left UE has been bothering him for about 3 years and he just began outpatient OT which has helped somewhat already.) Problem List - Problem List Occupational Therapy Problem List: Detail (1. Decreased activity tolerance needed for safe and Ind self cares. 2. Decreased left UE function.) Goals - Goals Occupational Therapy Goals: 1. Pt will demonstrate improved endurance to allow safe and Ind functional mobility and self cares Prognosis - Prognosis Good Plan - Plan Occupational Therapy Plan: OT 1-2 times per week until discharge. Recommend continued outpatient therapy to address left UE pain and impaired coordination after discharge.
--- NOTE | 2019-07-23 17:12 | Rehab Evaluation ---
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 tonsils hammer toe cataract PMH - Respiratory Hx Respiratory Disorders No PMH - Cardiovascular Hx Cardiovascular Disorders No PMH - Neuro Hx Neurological Disorders No PMH - GI Hx Gastrointestinal Disorders Yes Hx Crohn's Disease Yes Hx Gastroesophageal Reflux Yes Hx Ulcer Yes PMH - Hx Genitourinary Disorders Yes Hx Bladder Problem Yes: 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 He has 1 step, a platform and another step at the entrance, no railings. He has a walk in shower with grab bars and a bathtub as well as a standard height toilet, no grab bars. He typically stands to shower. He is responsible for washing dishes, running the vacuum and all outdoor chores. His is responsible for laundry and meal prep. He has a walker but ambulated Indly prior to admission.) Social History: Detail (Supportive family.) Precautions: [place], Fall - Time With Patient Total Time Spent With Patient (Min): 30 Treatment Procedures: Detail (Initial Evaluation low complexity) Subjective Information - Subjective Information Per Patient (The patient has complaints of R hand pain level 7 out of 10 using 0-10 pain scale. Patient reports pain is so severe he has difficulty sleeping. Patient also complains of L hand numbness. The patient also complained of back pain but stated it was better know that he was sitting in recliner with pillow positioned behind his back. The patient was seen at [facility] for an OT evaluation of R hand pain and was issued exercises per his report which he has been unable to complete due to recent medical issues. The patient also had complaints of overall fatigue with activity.) Objective Data - Mental Status Patient Orientation: Oriented x3 - Visual Perception Appears within normal limits for therapeutic activities - ROM Within normal limits (The patient's LE AROM is WNL. Refer to OT note for UE ROM. The patient's cervical AROM was WNL and did not reproduce symptoms of R hand pain or tingling.) - Strength/Tone Within normal limits (The patient's LE strength throughout was 4+ to 5/5. Refer to OT evaluation for UE strength.) - Transfers Independent (The patient was independent with sit to and from stand transfer.) - Balance Balance Sitting: Good Balance Standing: Fair (The patient required support of walker for standing. Standing balance was not formally tested.) - Gait Detail (The patient ambulated with front wheeled walker with CG of 1 for safety and one to handle equipment a distance of 40 feet x 1. Pt. complained of fatigue after ambulating.) - Special Tests Yes (Palpation: right upper trapezius and pectoralis tightness when compared to L sided musculature.) Therapy Assessment - Therapy Assessment Detail (The patient presents with decreased endurance for physical activity including ambulation distance. The patient also has complaints of severe R hand pain and numbness. The patient exhibits tight R upper trapezius and pectoral muscular tightness. No R hand pain or numbness was elicited with cervical ROM testing. The patient recently started OT as an outpt. for treatment of hand pain and reported he felt better after initial treatment/evaluation. Refer to inpt.OT note for details of R hand pain complaints and exercise program issued for hand pain. The patient would benefit from PT as an inpt. to increase ambulation distance, endurance for physical activity and assess safety on stairs.) Problem List - Problem List Physical Therapy Problem List: Detail (1) Patient will ambulate on stairs with supervision for safety 2) The patient will ambulate with or without assistive device independently household distances. 3) The patient will tolerate 15 to 20 minutes of physical activity.) Occupational Therapy Problem List: Detail (1. Decreased activity tolerance needed for safe and Ind self cares. 2. Decreased left UE function.) Goals - Goals Occupational Therapy Goals: 1. Pt will demonstrate improved endurance to allow safe and Ind functional mobility and self cares Plan - Plan Physical Therapy Plan: PT 1 time a day for gait training on levels and stairs and to reinforce OT exercise program to R hand including postural exercises and gentle stretching exercises, manual therapy techniques to tight musculature as needed. Occupational Therapy Plan: OT 1-2 times per week until discharge. Recommend continued outpatient therapy to address left UE pain and impaired coordination after discharge.
[2019-07-23] MEDS ORDERED: FUROSEMIDE IV 40MG/4ML VIAL IVP ONE (21:50)
[2019-07-23] MEDS ORDERED: METHYLPREDNISOLONE PF 125MG/VIAL IVP ONE (22:00)
[2019-07-23 22:12] LABS: HEMOGLOBIN 14.6 gm/dl (14.0-18.0); MEAN CELL VOLUME 94.9 fl (81-97); MEAN CORPUSCULAR HEMOGLOBIN 30.8 pg (27-33); MEAN CORPUSCULAR HGB CONC 32.4 g/dl (32-36); MEAN PLATELET VOLUME 10.1 fl (7.4-10.4); PLATELET COUNT 88 K/uL (130-400); RED BLOOD COUNT 4.74 M/uL (4.40-5.70); RED CELL DISTRIBUTION WIDTH 14.7 % (11.5-14.5); WHITE BLOOD COUNT W/O DIFF 12.5 K/uL (4.2-12.2)
[2019-07-23 22:19] LABS: BILIRUBIN,TOTAL 1.2 mg/dL (0.2-1.0); CREATININE 2.7 mg/dL (0.7-1.2); TOTAL PROTEIN 6.7 g/dL (6.6-8.7)
[2019-07-23 22:24] LABS: ALB/GLOB RATIO 1.2 (1.1-1.8); ALBUMIN 3.7 g/dL (4.0-5.0)
--- NOTE | 2019-07-23 22:26 | RADIOLOGY REPORT ---
EXAMINATION: Single View Chest EXAM DATE: 07/23/2019 10:04 PM TECHNIQUE: Single view chest INDICATION: shortness of breath COMPARISON: 11/13/2017. ENCOUNTER: Not applicable FINDINGS: The heart, mediastinum, and pulmonary vasculature are stable. No lung consolidation or pleural effu sions are present. No pneumothorax is present. IMPRESSION: No acute cardiopulmonary disease is present. Dictated by: Ana Walls MD on 07/23/2019 10:18 PM. .
[2019-07-23 22:28] LABS: INFLUENZA A NEGATIVE (NEGATIVE); INFLUENZA B NEGATIVE (NEGATIVE)
[2019-07-23 22:36] LABS: ARTERIAL BLOOD GAS PCO2 24.5 mmHg (35-48); ARTERIAL BLOOD GAS pH 7.41 (7.35-7.45)
[2019-07-23 22:38] LABS: ALLEN TEST PASS
[2019-07-23 23:22] LABS: ABSOLUTE NEUTROPHIL COUNT 8.77
[2019-07-23 23:23] LABS: PLATELET ESTIMATE SLIGHTLY DECREASED (NORMAL)
[2019-07-23] MEDS ORDERED: IPRATROPIUM/ALBUTEROL (0.5MG/3MG) NEB INH ONE (23:27)
[2019-07-24] MEDS: ACETAMINOPHEN 500 MG TABLET PO PRN (03:15)
[2019-07-24] MEDS ORDERED: 0.9 % SODIUM CHLORIDE 1000ML 1,000 ML IV PRN (03:35)
[2019-07-24 04:33] LABS: HEMATOCRIT 39.3 % (42.0-52.0); HEMOGLOBIN 12.6 gm/dl (14.0-18.0); MEAN CELL VOLUME 94.5 fl (81-97); MEAN CORPUSCULAR HGB CONC 32.1 g/dl (32-36); MEAN PLATELET VOLUME 10.1 fl (7.4-10.4); PLATELET COUNT 75 K/uL (130-400); RED BLOOD COUNT 4.16 M/uL (4.40-5.70); RED CELL DISTRIBUTION WIDTH 14.6 % (11.5-14.5)
[2019-07-24 04:34] LABS: MEAN CORPUSCULAR HEMOGLOBIN 30.2 pg (27-33)
[2019-07-24 04:47] LABS: CREATININE 3.2 mg/dL (0.7-1.2)
[2019-07-24 05:00] LABS: PLATELET ESTIMATE DECREASED (NORMAL)
[2019-07-24] MEDS ORDERED: LACTULOSE 20 GM/30 ML UDC PO ONE (06:14)
[2019-07-24] MEDS: PANTOPRAZOLE SODIUM 40 MG TABLET PO SCH (07:07)
--- NOTE | 2019-07-24 08:11 | Physician Progress Note ---
Subjective - Date Date of Physician Progress Note: 07/24/19 - Subjective Subjective Comment: On rounds this morning the patient appears to be resting comfortably on 4 liter nasal cannula oxygen. Overnight the patient had tachycardia, dyspnea and hypotension. CXR was unremarkable but CBC showed elevated WBCs 18.5k, low platelets and worsening kidney function. There was an attempt to initiate transfer last evening after these events but both facilities contacted were unable to accommodate the transfer at that time. Objective - Vital Signs Vital Signs: Vital Signs - Last 24 Hrs Temp Pulse Pulse Resp BP BP Pulse Ox 07/24/19 07:00 98.1 F 78 22 132/79 95 07/24/19 05:00 98.0 F 70 20 137/79 97 07/24/19 02:50 97.5 F L 80 22 110/70 95 07/24/19 00:00 97.6 F 90 24 96/55 95 07/23/19 23:42 115 H 30 H 92 L 07/23/19 23:15 97.7 F 101 H 24 90/48 92 L 07/23/19 23:00 100 H 28 H 92/49 91 L 07/23/19 22:45 100.0 F H 122 H 28 H 91/50 93 L 07/23/19 22:30 114 H 33 H 99/59 92 L 07/23/19 22:00 124 H 33 H 105/72 98 07/23/19 21:45 101.3 F H 138 H 40 H 138/112 90 L 07/23/19 21:30 99.0 F 100 H 32 H 129/93 88 L 07/23/19 21:15 99.4 F 07/23/19 20:42 98.1 F 84 18 93/55 95 07/23/19 09:38 98.3 F 63 16 120/66 95 07/23/19 09:00 63 16 07/23/19 08:41 18 91 L - General General Appearance: Alert, Oriented x3, Cooperative, No acute distress Limitations: No limitations - Head Head exam: Atraumatic, Normocephalic, Normal inspection - Eye Eye exam: Normal appearance, PERRL - ENT ENT exam: Normal exam, Mucous membranes moist, Normal orophraynx Ear exam: Normal external inspection Nasal Exam: Normal inspection Mouth exam: negative: Drooling, Muffled voice Teeth exam: Normal inspection - Neck Neck exam: Normal inspection, Full ROM. negative: Tenderness - Respiratory Respiratory exam: Normal lung sounds bilaterally. negative: Rales, Respiratory distress, Rhonchi, Stridor, Wheezes - Cardiovascular Cardiovascular Exam: Regular rate, Normal rhythm, Normal heart sounds. negative: Tachycardia Peripheral Pulses: 2+: Radial (R), Radial (L), Dorsalis Pedis (R), Dorsalis Pedis (L) - GI/Abdominal GI/Abdominal exam: Soft, Normal bowel sounds. negative: Distended, Guarding, Rebound, Tenderness - Rectal Rectal exam: Deferred - exam: Deferred, Other (Urosomy right midline lower abd. ) - Extremities Extremities exam: Normal inspection, Full ROM, Normal capillary refill, Pedal edema (LLE trace). negative: Tenderness - Back Back exam: Reports: Normal inspection, Tenderness (generalized p/pt). Denies: CVA tenderness (R), Rash noted - Neurological Neurological exam: Alert, Normal gait (painful), Oriented X3. negative: Motor sensory deficit - Psychiatric Psychiatric exam: Normal affect, Normal mood - Skin Skin exam: Dry, Intact, Warm Assessment and Plan - Assessment and Plan (1) Sepsis Current Visit: Yes Status: Acute Base Code: A41.9 - SEPSIS, UNSPECIFIED ORGANISM Comment: 07/24/19: - WBC 18.5, Tachycardia 130s, BUN/Cr 54/3.2. - UA +, Urine culture positive for Klebsiella. - Fluid bolused 1 liter and on continuous IV therapy with 0.9% @ 75mL/hr. - Levaquin 500mg IV once and continuing with 25mg IV daily due to reduced kidney function. - Continuous surveillance system monitor and oxygen via nasal cannula PRN. (2) Acute renal insufficiency Current Visit: Yes Status: Acute Base Code: N28.9 - DISORDER OF KIDNEY AND URETER, UNSPECIFIED Comment: 07/24/18: - Worsening kindey function; Bun/Cr: 19/1.2 --> 35/2.6 --> 54/3.2 - Likely 2/[address], dehydration and UTI. - Replete fluids with 0.9% @ 75mL/hr. - Renal dose medications per pharmacy. - Discussed case with Nephrology and placed consult. Will likely transfer to [facility] for further care. (3) UTI (urinary tract infection) Current Visit: Yes Status: Acute Qualifiers: Urinary tract infection type: acute cystitis Hematuria presence: without hematuria Qualified Code(s): N30.00 - Acute cystitis without hematuria Base Code: N39.0 - URINARY TRACT INFECTION, SITE NOT SPECIFIED Comment: 07/24/19: -Hx Bladder Ca., urostomy x18 years, no current treatment for Cancer -Right kidney stone 3 days [employer] with hydronephrosis, 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 Falnk pain has resolved. -UA: 30mg/dl Protein, Large blood, Large Leukocytes, 3+ Triple Phos Crystals, 4+ Bacteria. UCX + for klebsiella with sensitivity to multiple medications. Will start Levaquin 500mg daily. Pharmacy to dose renal. - Fevers resolved. - CBC w/diff WBC: 18.5, -Renal US: no hydronephrosis (right side resolved), no stones, 5.9cm cyst right kidney - Levaquin 250 mg daily IV. (4) Radicular pain in right arm Current Visit: Yes Status: Acute Base Code: M79.2 - NEURALGIA AND NEURITIS, UNSPECIFIED Comment: 07/24/19: - Stable since starting Neurontin 100mg TID, Tylenol 650mg Q4H PRN - Right shoulder pain with radiation to the hand. No neck pain. - PT/OT consulted will continue with daily therapy. (5) Hyperkalemia Current Visit: Yes Status: Acute Base Code: E87.5 - HYPERKALEMIA Comment: 07/24/19: - K 5.7 likely due to decrease potassium excretion by kidneys. - No Kayexalate since patient has bowel movement. - Will give insulin novolog 10 units once with dextrose 50mL once to help tranfer K back into cell. - Repeat BMP to check K levels. (6) Elevated troponin Current Visit: Yes Status: Acute Base Code: R79.89 - OTHER SPECIFIED ABNORMAL FINDINGS OF BLOOD CHEMISTRY Comment: 07/24/18: - Troponins 0.4 --> 0.7 - ECG: sinuc tachycardia, no acute ST-T changes. - Elevation likely 2/2 kidney dysfunction. (7) Thrombocytopenia Current Visit: Yes Status: Acute Base Code: D69.6 - THROMBOCYTOPENIA, UNSPECIFIED Comment: 07/24/19: - Plts 249 --> 88--> 75 - No active bleeding. Possibly 2/2 sepsis. - Stop Lovenox (8) DVT prophylaxis Current Visit: Yes Status: Acute Base Code: Z29.9 - ENCOUNTER FOR PROPHYLACTIC MEASURES, UNSPECIFIED Comment: 07/24/19: - Hold Lovenox 30mg daily 2/2 worsening to kidney function. -Nursing to encourage ambulation in room -SCD while in bed (9) Full code status Current Visit: Yes Status: Acute Base Code: Z78.9 - OTHER SPECIFIED HEALTH STATUS Comment: 07/24/19: -Full code status this admission Results - Labs Result Diagrams: 07/24/19 04:26 07/24/19 04:26 Labs Last 24 Hours: Laboratory Results - last 24 hr 07/23/19 07/23/19 07/23/19 21:45 21:54 21:54 WBC 12.5 H RBC 4.74 Hgb 14.6 Hct 45.0 MCV 94.9 MCH 30.8 MCHC 32.4 RDW 14.7 H Plt Count 88 L MPV 10.1 Neutrophils % 60.0 Band Neutrophils % 10.0 H Eosinophils % Not Reportable Basophils % Not Reportable Absolute Neutrophils 8.77 Lymphocytes 20.0 Monocytes 10.0 H Basophils 0.0 Platelet Estimate Slightly decreased RBC Morphology Normal Eosinophil Count 0.0 D-Dimer Cancelled Puncture Site pCO2 pO2 HCO3 Oxyhemoglobin ABG pH ABG O2 Saturation ABG Base Excess Slim Test Carboxyhemoglobin Methemoglobin Total Hemoglobin Actual Respiration Rate FiO2 Sodium 134 L Potassium 5.1 H Chloride 97 L Carbon Dioxide 18.0 L Anion Gap 19.0 H BUN 47 H Creatinine 2.7 H Estimated GFR 24 Random Glucose 98 Calcium 8.7 L Total Bilirubin 1.20 H AST 49 ALT 18 Alkaline Phosphatase 82 Troponin T 0.435 H* NT-Pro-B Natriuret Pep 53951.00 H Total Protein 6.7 Albumin 3.7 L Globulin 3.0 Albumin/Globulin Ratio 1.2 Influenza Type A Ag Influenza Type B Ag 07/23/19 07/23/19 07/23/19 22:00 22:15 23:27 WBC RBC Hgb Hct MCV MCH MCHC RDW Plt Count MPV Neutrophils % Band Neutrophils % Eosinophils % Basophils % Absolute Neutrophils Lymphocytes Monocytes Basophils Platelet Estimate RBC Morphology Eosinophil Count D-Dimer Puncture Site Right wrist Cancelled pCO2 24.5 L Cancelled pO2 73.0 L Cancelled HCO3 Not Reportable Cancelled Oxyhemoglobin Not Reportable Cancelled ABG pH 7.41 Cancelled ABG O2 Saturation Not Reportable Cancelled ABG Base Excess Not Reportable Cancelled Slim Test Pass Cancelled Carboxyhemoglobin Not Reportable Cancelled Methemoglobin Not Reportable Cancelled Total Hemoglobin Cancelled Actual Respiration Rate 32.0 H Cancelled FiO2 40.0 Cancelled Sodium Potassium Chloride Carbon Dioxide Anion Gap BUN Creatinine Estimated GFR Random Glucose Calcium Total Bilirubin AST ALT Alkaline Phosphatase Troponin T NT-Pro-B Natriuret Pep Total Protein Albumin Globulin Albumin/Globulin Ratio Influenza Type A Ag Negative Influenza Type B Ag Negative 07/24/19 07/24/19 07/24/19 04:26 04:26 04:26 WBC 18.0 H RBC 4.16 L Hgb 12.6 L Hct 39.3 L MCV 94.5 MCH 30.2 MCHC 32.1 RDW 14.6 H Plt Count 75 L MPV 10.1 Neutrophils % 62.0 Band Neutrophils % 26.0 H Eosinophils % Not Reportable Basophils % Not Reportable Absolute Neutrophils 15.80 Lymphocytes 6.0 L Monocytes 6.0 Basophils 0.0 Platelet Estimate Decreased RBC Morphology Normal Eosinophil Count 0.0 D-Dimer Puncture Site pCO2 pO2 HCO3 Oxyhemoglobin ABG pH ABG O2 Saturation ABG Base Excess Slim Test Carboxyhemoglobin Methemoglobin Total Hemoglobin Actual Respiration Rate FiO2 Sodium 134 L Potassium 5.6 H Chloride 100 Carbon Dioxide 19.0 L Anion Gap 15.0 BUN 54 H Creatinine 3.2 H Estimated GFR 20 Random Glucose 160 H Calcium 7.8 L Total Bilirubin AST ALT Alkaline Phosphatase Troponin T 0.786 H* NT-Pro-B Natriuret Pep Total Protein Albumin Globulin Albumin/Globulin Ratio Influenza Type A Ag Influenza Type B Ag DVT/PE Assessment - Risk for VTE Risk for VTE: No Risk Level: High Risk Assessment Date: 07/22/19 Risk Assessment Time: 13:49 VTE Orders Placed or Will Be Placed: No VTE Reason for No Prophylaxis: Contraindicated (thrombocytopenia ) - Active Medicaitons Current Medications: Current Medications Acetaminophen (Tylenol 500mg Tab) 1,000 mg PO Q6H PRN PRN Reason: PAIN - MILD(1-4)/FEVER Last Admin: 07/24/19 03:15 Dose: 1,000 mg Documented by: Atorvastatin Calcium (Lipitor) 10 mg PO Q48H [facility] Last Admin: 07/23/19 10:03 Dose: 10 mg Documented by: Docusate Sodium (Colace) 100 mg PO BID [facility] Last Admin: 07/23/19 21:17 Dose: 100 mg Documented by: Doxycycline Hyclate (Vibramycin) 100 mg PO BID [facility] Last Admin: 07/23/19 21:16 Dose: 100 mg Documented by: Furosemide (Lasix) 20 mg PO Q48H [facility] Last Admin: 07/23/19 10:03 Dose: 20 mg Documented by: Gabapentin (Neurontin) 100 mg PO TID [facility] Last Admin: 07/23/19 22:09 Dose: Not Given Documented by: Sodium Chloride () 1,000 mls @ 75 mls/hr IV .[id number] PRN PRN Reason: LARGE VOLUME IV Last Admin: 07/24/19 03:40 Dose: 75 mls/hr Documented by: Ibuprofen (Motrin 400mg) 400 mg PO Q8H PRN PRN Reason: PAIN - MILD(1-4)/FEVER Last Admin: 07/23/19 21:17 Dose: 400 mg Documented by: Lisinopril (Zestril) 2.5 mg PO DAILY [facility] Last Admin: 07/23/19 10:04 Dose: 2.5 mg Documented by: Metformin HCl (Glucophage Ir) 250 mg PO Q48H [facility] Last Admin: 07/23/19 10:02 Dose: 250 mg Documented by: Ondansetron HCl (Zofran) 4 mg IVP Q4H PRN PRN Reason: NAUSEA [facility]opraz[facility] Last Admin: 07/24/19 07:07 Dose: 40 mg Documented by: Potassium Chloride (Klor-Con) 20 meq PO Q48H [facility] Last Admin: 07/23/19 10:03 Dose: Not Given Documented by: AMI Plan - Labs Result Diagrams: 07/24/19 04:26 07/24/19 04:26
[2019-07-24] MEDS ORDERED: ALBUTEROL (0.5% CONCENTRATED) 2.5 MG/0.5 ML VIAL.NEB INH ONE (09:23)
[2019-07-24] MEDS ORDERED: NOVOLOG FLEXPEN (INSULIN ASPART) 100 UNITS/ML SQ ONE (09:23)
[2019-07-24] MEDS ORDERED: DEXTROSE 50 % IVP 50 ML DISP.SYRIN IVP ONE (09:23)
[2019-07-24] MEDS: LISINOPRIL 5 MG TABLET PO SCH (09:33)
[2019-07-24] MEDS: DOCUSATE SODIUM 100 MG CAPSULE PO SCH (09:34)
[2019-07-24] MEDS: DOXYCYCLINE HYCLATE 100 MG CAPSULE PO SCH (09:34)
[2019-07-24] MEDS: GABAPENTIN 100 MG CAPSULE PO SCH (09:34)
[2019-07-24] MEDS ORDERED: LEVOFLOXACIN 250MG IVPB 250 MG/50 ML BAG IVPB SCH (10:00)
--- NOTE | 2019-07-24 11:04 | Discharge Summary ---
Providers Discharge Summary Date: 07/24/19 Date of admission: 07/23/19 10:46 Attending physician: АЛЕКСАНДР BELL Primary care physician: MARIBEL GRACIA D.O. Consults: Consult Orders 07/24/19 00:17 Consult NOW Consulting Provider: AVA CHRISTIE Physician Instructions: Reason For Exam: POSSIBLE HYDRONEPHROSIS Physical Exam - Vital Signs Vital Signs: Vital Signs - Last 24 Hrs Temp Pulse Pulse Resp BP BP Pulse Ox 07/24/19 10:30 75 18 07/24/19 08:53 98.0 F 70 20 124/80 97 07/24/19 07:00 98.1 F 78 22 132/79 95 07/24/19 05:00 98.0 F 70 20 137/79 97 07/24/19 02:50 97.5 F L 80 22 110/70 95 07/24/19 00:00 97.6 F 90 24 96/55 95 07/23/19 23:42 115 H 30 H 92 L 07/23/19 23:15 97.7 F 101 H 24 90/48 92 L 07/23/19 23:00 100 H 28 H 92/49 91 L 07/23/19 22:45 100.0 F H 122 H 28 H 91/50 93 L 07/23/19 22:30 114 H 33 H 99/59 92 L 07/23/19 22:00 124 H 33 H 105/72 98 07/23/19 21:45 101.3 F H 138 H 40 H 138/112 90 L 07/23/19 21:30 99.0 F 100 H 32 H 129/93 88 L 07/23/19 21:15 99.4 F 07/23/19 20:42 98.1 F 84 18 93/55 95 - General General Appearance: Alert, Oriented x3, Cooperative, No acute distress Limitations: No limitations - Head Head exam: Atraumatic, Normocephalic, Normal inspection - Eye Eye exam: Normal appearance, PERRL - ENT ENT exam: Normal exam, Mucous membranes moist, Normal orophraynx Ear exam: Normal external inspection Nasal Exam: Normal inspection Mouth exam: negative: Drooling, Muffled voice Teeth exam: Normal inspection - Neck Neck exam: Normal inspection, Full ROM. negative: Tenderness - Respiratory Respiratory exam: Normal lung sounds bilaterally. negative: Rales, Respiratory distress, Rhonchi, Stridor, Wheezes - Cardiovascular Cardiovascular Exam: Regular rate, Normal rhythm, Normal heart sounds. negative: Tachycardia Peripheral Pulses: 2+: Radial (R), Radial (L), Dorsalis Pedis (R), Dorsalis Pedis (L) - GI/Abdominal GI/Abdominal exam: Soft, Normal bowel sounds. negative: Distended, Guarding, Rebound, Tenderness - Rectal Rectal exam: Deferred - exam: Deferred, Other (Urosomy right midline lower abd. ) - Extremities Extremities exam: Normal inspection, Full ROM, Normal capillary refill, Pedal edema (LLE trace). negative: Tenderness - Back Back exam: Reports: Normal inspection, Tenderness (generalized p/pt). Denies: CVA tenderness (R), Rash noted - Neurological Neurological exam: Alert, Normal gait (painful), Oriented X3. negative: Motor sensory deficit - Psychiatric Psychiatric exam: Normal affect, Normal mood - Skin Skin exam: Dry, Intact, Warm Hospitalization - Hospitalization Admission Diagnosis: Acute UTI with fever - Problem List/Discharge Diagnosis (1) Sepsis Current Visit: Yes Status: Acute Base Code: A41.9 - SEPSIS, UNSPECIFIED ORGANISM Comment: 07/24/19: - WBC 18.5, Tachycardia 130s, BUN/Cr 54/3.2. - UA +, Urine culture positive for Klebsiella. - Fluid bolused 1 liter and on continuous IV therapy with 0.9% @ 75mL/hr. - Levaquin 500mg IV once and continuing with 25mg IV daily due to reduced kidney function. 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 (2) Acute renal insufficiency Current Visit: Yes Status: Acute Base Code: N28.9 - DISORDER OF KIDNEY AND URETER, UNSPECIFIED Comment: 07/24/18: - Worsening kindey function; Bun/Cr: /1.2 --> 35/2.6 --> 54/3.2 - Likely 2/[address], dehydration and UTI. - Replete fluids with 0.9% @ 75mL/hr. - Renal dose medications per pharmacy. - Discussed case with Nephrology and placed consult. Will likely transfer to [facility] for further care. 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 Falnk pain has resolved. -UA: 30mg/dl Protein, Large blood, Large Leukocytes, 3+ Triple Phos Crystals, 4+ Bacteria. UCX + for klebsiella with sensitivity to multiple medications. Will start Levaquin 500mg daily. Pharmacy to dose renal. - Fevers resolved. - CBC w/diff WBC: 18.5, -Renal US: no hydronephrosis (right side resolved), no stones, 5.9cm cyst right kidney - Levaquin 250 mg daily IV. (4) Radicular pain in right arm Current Visit: Yes Status: Acute Base Code: M79.2 - NEURALGIA AND NEURITIS, UNSPECIFIED Comment: 07/24/19: - Stable since starting Neurontin 100mg TID, Tylenol 650mg Q4H PRN - Right shoulder pain with radiation to the hand. No neck pain. - PT/OT consulted will continue with daily therapy. (5) Hyperkalemia Current Visit: Yes Status: Acute Base Code: E87.5 - HYPERKALEMIA Comment: 07/24/19: - K 5.7 likely due to decrease potassium excretion by kidneys. - No Kayexalate since patient has bowel movement. - Will give insulin novolog 10 units once with dextrose 50mL once to help tranfer K back into cell. - Repeat BMP to check K levels. (6) Elevated troponin Current Visit: Yes Status: Acute Base Code: R79.89 - OTHER SPECIFIED ABNORMAL FINDINGS OF BLOOD CHEMISTRY Comment: 07/24/18: - Troponins 0.4 --> 0.7 - ECG: sinuc tachycardia, no acute ST-T changes. - Elevation likely 2/2 kidney dysfunction. (7) Thrombocytopenia Current Visit: Yes Status: Acute Base Code: D69.6 - THROMBOCYTOPENIA, UNSPECIFIED Comment: 07/24/19: - Plts 249 --> 88--> 75 - No active bleeding. Possibly 2/2 sepsis. 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 - Serum glucose 160,98,86,159 - Sliding scale insulin low dose. (9) DVT prophylaxis Current Visit: Yes Status: Acute Base Code: Z29.9 - ENCOUNTER FOR PROPHYLACTIC MEASURES, UNSPECIFIED Comment: 07/24/19: - Hold Lovenox 30mg daily 2/2 worsening to kidney function. -Nursing to encourage ambulation in room -SCD while in bed (10) Full code status Current Visit: Yes Status: Acute Base Code: Z78.9 - OTHER SPECIFIED HEALTH STATUS Comment: 07/24/19: -Full code status this admission - Hospitalization Course Hospital Course: 07/22/19: Mr. Colon is a 84 y/o male who presented to ER for left lower back pain beginning at 0400. Patient unable to go back to sleep after pain onset. Patient has a history of bladder cancer with a urostomy x 18 years. Patient is not currently receiving treatment for cancer. Patient had a stent placed in his left ureter and is changed every 4 months (next due August). Patient sees a Urologist Dr. Taylor in [place]. He had a suspected kidney stone 3 days ago with right-sided flank pain and hematuria. Patient had a CT done during that visit which showed right hydronephrosis. Patient did report that the stone passed approx. 2 days ago and had been pain free since then. Patient is now having left-sided pain. Patient also reported having constipation x2 days, with no BM. Patient initially denied fever and vomiting upon arrival to ER. He developed a fever of 101.9F, increased pain, and nausea during his stay. Oral doxycycline recommended by patient's urologist for treatment. Patient admitted for nausea and pain control p/Dr. Ashley. PCP: Maribel Falk (maintenance of way supervisor & PCP), previously Dr. Muñiz (maintenance of way supervisor, patient's son in-law) ED Course: Vital Signs Temp Pulse Resp BP Pulse Ox 07/22/19 12:13 101.9 F H 07/22/19 11:46 101.5 F H 98 H 20 126/72 96 07/22/19 10:50 98.3 F 114 H 28 H 203/127 96 07/22/19 07:59 97.8 F 72 24 155/97 99 07/22/19 07:46 24 Intake & Output 07/20/19 07/21/19 07/22/19 07/23/19 06:59 06:59 06:59 06:59 Weight 238 lb Laboratory 07/22/19 07/22/19 07/22/19 08:00 08:00 08:00 WBC 9.2 RBC 4.85 Hgb 14.9 Hct 46.0 MCV 94.8 MCH 30.7 MCHC 32.4 RDW 14.2 Plt Count 249 MPV 8.8 Gran % 73.9 Lymphocytes % 18.0 Monocytes % 7.1 Eosinophils % 0.9 Basophils % 0.1 Absolute Neutrophils 6.80 Sodium 138 Potassium 4.4 Chloride 99 Carbon Dioxide 22.0 Anion Gap 17.0 H BUN 19 Creatinine 1.2 Estimated GFR > 60 Random Glucose 159 H Calcium 9.5 Urine Color Yellow Urine Appearance Sl cloudy Urine pH 8.5 Ur Specific [place] 1.010 Urine Protein 30 mg/dl H Urine Glucose (UA) Negative Urine Ketones Negative Urine Blood Large H Urine Nitrite Negative Urine Bilirubin Negative Urine Urobilinogen 0.2 Ur Leukocyte Esterase Large H Urine RBC >50 Urine WBC >50 U Non-Squamous Epi Cells 0 - 2 Triple Phos Crystals 3+ Urine Bacteria 4+ Past Surgical History Date/Surgery bilateral total knee appy bladder for CA tonsils hammer toe cataract Past Medical History Hx Respiratory Disorders No Hx Cardiovascular Disorders No Hx Neurological Disorders No Hx Gastrointestinal Disorders Yes Hx Crohn's Disease Yes Hx Gastroesophageal Reflux Yes Hx Ulcer Yes Hx Genitourinary Disorders Yes Hx Bladder Problem Yes: CA Comment: left renal stent and urostomy Hx Endocrine Disorders Yes Hx Diabetes Yes Hx Thyroid Disease No Hx Musculoskeletal Disorders Yes Hx Arthritis Yes Hx Psychiatric Problems No Hx Hematology/Oncology Disorders Yes Hx Cancer Yes: Bladder * Hx Chemotherapy No * Hx Radiation Therapy No Social History Alcohol None Drug Use None Smoking Status Smoking Status Never smoker Family Medical History Any Significant Family Hx? No Medications Acetaminophen (Tylenol 500mg Tab) 1,000 mg PO Q6H PRN PRN Reason: PAIN - MILD(1-4)/FEVER Doxycycline Hyclate (Vibramycin) 100 mg PO BID BOBBY Sodium Chloride () 500 mls @ 500 mls/hr IV .Q1H ONE Sodium Chloride () 1,000 mls @ 100 mls/hr IV .Q10H ONE Ibuprofen (Motrin 400mg) 400 mg PO Q8H PRN PRN Reason: PAIN - MILD (1-4) Ondansetron HCl (Zofran) 4 mg IVP Q4H PRN PRN Reason: NAUSEA Ciprofloxacin (Cipro) 500 mg PO NOW ONE Acetaminophen (Ofirmev) 1,000 mg in 100 mls @ 400 mls/hr IVPB NOW ONE Ketorolac Tromethamine (Toradol) 30 mg IVP NOW ONE Magnesium Citrate (Citrate Of Magnesia) 150 ml PO ONCE ONE Morphine Sulfate (Morphine Sulfate) 4 mg IVP NOW ONE Ondansetron HCl (Zofran) 4 mg IVP NOW ONE Sodium Chloride () 250 ml IV BOLUS ONE Problems Back pain (Acute) M54.9 UTI (urinary tract infection) (Acute) N39.0 07/22/19: Patient A&Ox4 upon examination. Patient resting comfortably in bed after getting down to Med/Surg floor. Patient states pain and nausea have improved since he was in the ER. Pain is not limited to left flank, patient states it is "generalized". Patient's to bring in night time bag for urostomy. Patient takes care of own urostomy at home. Patient denies cough, CP, BAKER, or SOB. Patient explained POC and all questions answered. Patient will stay overnight for IV fluids, pain and nausea control with likely D/C tomorrow and continue PO antibiotics. 07/24/19On rounds this morning the patient appears to be resting comfortably on 4 liter nasal cannula oxygen. Overnight the patient had tachycardia, dyspnea and hypotension. CXR was unremarkable but CBC showed elevated WBCs 18.5k, low platelets and worsening kidney function. There was an attempt to initiate transfer last evening after these events but both facilities contacted were unable to accommodate the transfer at that time. He was given Lactulose to help with constipation. He has hyperkalemia which is due to his worsening kidney function and Kayexalate was held due to concern for bowel necrosis. Insulin 10 units and dextrose was given and repeat BMP is pending. There were no EKG changes noted. [facility] was again contacted this morning for transfer and the patient will be admitted to the Internal medicine service under the care of Dr. Evans. Procedures: Imaging and X-Rays 07/22/19 07:55 ABDOMEN 1 VIEW [RAD] Stat 07/22/19 07:56 RENAL [US] Stat 07/23/19 21:39 CHEST 1 VIEW [RAD] Stat Cardiology Procedures 07/23/19 23:29 EKG NOW 07/24/19 06:00 EKG QDX2@0600 Abnormal Labs: Abnormal Lab Results 07/22/19 07/22/19 07/23/19 Range/Units 08:00 08:00 06:14 WBC (4.2-12.2) K/uL RBC 4.29 L (4.40-5.70) M/uL Hgb 12.8 L (14.0-18.0) gm/dl Hct 41.4 L (42.0-52.0) % MCHC 30.9 L (32-36) g/dl RDW (11.5-14.5) % Plt Count 100 L (130-400) K/uL Band Neutrophils % 17.0 H (0-5) % Lymphocytes 10.0 L (16-45) % Monocytes (0-9) % pCO2 (35-48) mmHg pO2 (83-108) mmHg Actual Respiration Rate (10-18) /MIN Sodium (136-145) mmol/L Potassium (3.4-4.5) mmol/L Chloride (98-107) mmol/L Carbon Dioxide (22-29) mmol/L Anion Gap 17.0 H (7-16) BUN (8-23) mg/dL Creatinine (0.7-1.2) mg/dL Random Glucose 159 H (74-109) mg/dL Calcium (8.8-10.2) mg/dL Total Bilirubin (0.2-1.0) mg/dL Troponin T (0-0.010) ng/mL NT-Pro-B Natriuret Pep (<450) pg/mL Albumin (4.0-5.0) g/dL Urine Protein 30 mg/dl H (NEGATIVE) Urine Blood Large H (NEGATIVE) Ur Leukocyte Esterase Large H (NEGATIVE) 07/23/19 07/23/19 07/23/19 Range/Units 06:14 21:54 21:54 WBC 12.5 H (4.2-12.2) K/uL RBC (4.40-5.70) M/uL Hgb (14.0-18.0) gm/dl Hct (42.0-52.0) % MCHC (32-36) g/dl RDW 14.7 H (11.5-14.5) % Plt Count 88 L (130-400) K/uL Band Neutrophils % 10.0 H (0-5) % Lymphocytes (16-45) % Monocytes 10.0 H (0-9) % pCO2 (35-48) mmHg pO2 (83-108) mmHg Actual Respiration Rate (10-18) /MIN Sodium 134 L (136-145) mmol/L Potassium 5.0 H 5.1 H (3.4-4.5) mmol/L Chloride 97 L (98-107) mmol/L Carbon Dioxide 18.0 L (22-29) mmol/L Anion Gap 19.0 H (7-16) BUN 35 H 47 H (8-23) mg/dL Creatinine 2.6 H 2.7 H (0.7-1.2) mg/dL Random Glucose (74-109) mg/dL Calcium 7.9 L 8.7 L (8.8-10.2) mg/dL Total Bilirubin 1.20 H (0.2-1.0) mg/dL Troponin T 0.435 H* (0-0.010) ng/mL NT-Pro-B Natriuret Pep 96136.00 H (<450) pg/mL Albumin 3.7 L (4.0-5.0) g/dL Urine Protein (NEGATIVE) Urine Blood (NEGATIVE) Ur Leukocyte Esterase (NEGATIVE) 07/23/19 07/24/19 07/24/19 Range/Units 22:15 04:26 04:26 WBC 18.0 H (4.2-12.2) K/uL RBC 4.16 L (4.40-5.70) M/uL Hgb 12.6 L (14.0-18.0) gm/dl Hct 39.3 L (42.0-52.0) % MCHC (32-36) g/dl RDW 14.6 H (11.5-14.5) % Plt Count 75 L (130-400) K/uL Band Neutrophils % 26.0 H (0-5) % Lymphocytes 6.0 L (16-45) % Monocytes (0-9) % pCO2 24.5 L (35-48) mmHg pO2 73.0 L (83-108) mmHg Actual Respiration Rate 32.0 H (10-18) /MIN Sodium 134 L (136-145) mmol/L Potassium 5.6 H (3.4-4.5) mmol/L Chloride (98-107) mmol/L Carbon Dioxide 19.0 L (22-29) mmol/L Anion Gap (7-16) BUN 54 H (8-23) mg/dL Creatinine 3.2 H (0.7-1.2) mg/dL Random Glucose 160 H (74-109) mg/dL Calcium 7.8 L (8.8-10.2) mg/dL Total Bilirubin (0.2-1.0) mg/dL Troponin T (0-0.010) ng/mL NT-Pro-B Natriuret Pep (<450) pg/mL Albumin (4.0-5.0) g/dL Urine Protein (NEGATIVE) Urine Blood (NEGATIVE) Ur Leukocyte Esterase (NEGATIVE) 07/24/19 Range/Units 04:26 WBC (4.2-12.2) K/uL RBC (4.40-5.70) M/uL Hgb (14.0-18.0) gm/dl Hct (42.0-52.0) % MCHC (32-36) g/dl RDW (11.5-14.5) % Plt Count (130-400) K/uL Band Neutrophils % (0-5) % Lymphocytes (16-45) % Monocytes (0-9) % pCO2 (35-48) mmHg pO2 (83-108) mmHg Actual Respiration Rate (10-18) /MIN Sodium (136-145) mmol/L Potassium (3.4-4.5) mmol/L Chloride (98-107) mmol/L Carbon Dioxide (22-29) mmol/L Anion Gap (7-16) BUN (8-23) mg/dL Creatinine (0.7-1.2) mg/dL Random Glucose (74-109) mg/dL Calcium (8.8-10.2) mg/dL Total Bilirubin (0.2-1.0) mg/dL Troponin T 0.786 H* (0-0.010) ng/mL NT-Pro-B Natriuret Pep (<450) pg/mL Albumin (4.0-5.0) g/dL Urine Protein (NEGATIVE) Urine Blood (NEGATIVE) Ur Leukocyte Esterase (NEGATIVE) Condition at Discharge: (2) Stable Discharge Medications - Discharge Medications Prescriptions: Ciprofloxacin HCl [Cipro] 500 mg PO Q12HR 7 Days #14 tablet Home Medications: Ambulatory Orders Cholecalciferol (Vitamin D3) [Vitamin D3] 2,000 unit PO DAILY 07/10/17 [Last Taken 1 Day Ago ~07/09/17] Cranberry Fruit Extract [Cranberry] 500 mg PO DAILY 07/10/17 [Last Taken 1 Day Ago ~07/09/17] Esomeprazole Magnesium [Nexium] 40 mg PO DAILYAC 07/10/17 [Last Taken 1 Day Ago ~07/09/17] Rosuvastatin Calcium [Crestor] 2.5 mg PO Q48H 07/10/17 [Last Taken 1 Day Ago ~07/09/17] Ciprofloxacin HCl [Cipro] 500 mg PO Q12HR 7 Days #14 tablet 07/22/19 [Last Taken Unknown] Furosemide [Lasix] 20 mg PO Q48H 07/22/19 [Last Taken Unknown] Discharge Plan - Discharge Instructions Diet at Discharge: Regular Diet Instructions: Constipation (ED), Urinary Tract Infection in Men (ED), Low Back Strain (ED) Additional Instructions: Transfer to [facility] for further workup Follow up with Dr. Falk in 2-3 days Take Levaquin 500mg once a day for 7 days. (DO NOT take Cipro) Drink full bottle of Mag Citrate at home then drink two large glasses of water over the next few hours for constipation. Take tylenol or advil for back pains. Return to the ED as needed Quality Measures - Quality Measures Quality Measures: Advance Directives, Documentation of Current Medications in Medical Record, Elder Maltreatment Screen and Follow-Up Plan, Screening for High Blood Pressure and F/U Documented - Current Medications Quality Measure: Measure #130: Documentation of Current Medications Documentation of Current Medications: <Current Medications Documented/Reviewed> [G5831] - Blood Pressure Screening Quality Measure: Screening for High Blood Pressure and Follow-Up Documented Does Patient Have Any of the Following: No Blood Pressure Classification: Pre-Hypertensive BP Reading Systolic Measurement: 123 Diastolic Measurement: 74 Screening for High Blood Pressure: < Pre-Hypertensive BP, F/U Documented > [P8950] Pre-Hypertensive Follow-up Interventions: Follow-up with rescreen every year. - Advance Directives Quality Measure: Measure #47: Care Plan Advance Directives Established: Yes Advance Directives Information Provided To Patient: No Advance Directives on File: No Living Will: Yes Power of Helmet Hat Puncher: Yes Power of Helmet Hat Puncher Name: kenna colon Advance Care Planning: <Care Plan/Decision Maker Documented; Discussed & Documented> [1123F] - Elder Abuse Suspicion Index Screening: Elder Abuse Suspicion Index Screening Rely on people for bathing, dressing, shopping, banking, etc: No Prevented from getting food, clothes, medication, etc: No Made to feel shamed or threatened by someone: No Forced to sign papers or use money against will: No Feel afraid, touched in ways not wanted or hurt physically: No Poor eye contact, withdrawn, malnourished, cuts or bruises: No Screening Result: Negative result EASI Reference Information: Lauren PALENCIA, Vivi C, Rob D, Tara Bennett.Development and validation of a tool to assist physicians identification of elder abuse: The Elder Abuse Suspicion Index (EASI ). Journal of Elder Abuse and Neglect, 2008; 20 (3): 276-300. - Elder Maltreatment Screen Quality Measures: Elder Maltreatment Screen and Follow-Up Plan Elder Maltreatment Screen: <Negative, No Follow-Up Plan Required> [G8733]
== END 2019-07-24 12:50 | disposition short-term general hospital (02) | DRG 872 ==
LOC: ER 07:41 → MEDSURG 12:57 → EEVIPCON 12:57 → OBSVTOIN 07-23 10:46
PROVIDERS: ADMIT Internal Medicine; ATTEND Internal Medicine
DX: A41.9 Sepsis, unspecified organism (principal); N30.00 Acute cystitis without hematuria; K50.90 Crohn's disease, unspecified, without complications; M79.2 Neuralgia and neuritis, unspecified; N28.9 Disorder of kidney and ureter, unspecified; E87.5 Hyperkalemia; R79.89 Other specified abnormal findings of blood chemistry; D69.6 Thrombocytopenia, unspecified; R50.9 Fever, unspecified; Z96.0 Presence of urogenital implants; K59.00 Constipation, unspecified; E11.9 Type 2 diabetes mellitus without complications; Z79.4 Long term (current) use of insulin; K21.9 Gastro-esophageal reflux disease without esophagitis; M19.90 Unspecified osteoarthritis, unspecified site; Z93.6 Other artificial openings of urinary tract status; Z85.51 Personal history of malignant neoplasm of bladder
CPT/HCPCS: 36416; 36600; 71045; 74018; 76775; 80048; 80053; 81001; 82375; 82803; 82948; 83880; 84484; 85025; 85027; 85379; 87040; 87400; 93005; 93010; 94640; 94660; 94762; 96374; 96375; 99223; 99233; 99239; 99285; J1650; J1885; J1940; J1956; J2405; J2930; J7040

== ENCOUNTER 2019-07-31 09:56 | Inpatient (IN) | payer MEDICARE, BC ==
[2019-07-31] MEDS: METOPROLOL TART 50 MG TABLET PO SCH (21:23)
[2019-07-31] MEDS: LINEZOLID 600 MG TABLET PO SCH (21:23)
[2019-07-31] MEDS: CEFDINIR 300 MG CAPSULE PO SCH (21:23)
[2019-08-01] MEDS: PANTOPRAZOLE SODIUM 40 MG TABLET PO SCH (06:06)
--- NOTE | 2019-08-01 08:51 | History & Physical ---
History of Present Illness - Date Date of Service for History & Physical: 08/01/19 - History of Present Illness Admitting Diagnosis: deconditioning due to sepsis and uti History of Present Illness: 84 yo male presents to [facility] for swing bed admission s/p prolong hospital stay for sepsis, UTI, and SHERIE. PMH of HTN, hyperlipidemia, GERD with possible Barker 's, bladder cancer, cystectomy and urostomy, being treated with linezolid and cefdinir. pt has appointment for urology stent exchange with [facility] urologist. Infectious disease was consulted at [facility] before d/c for abx use and created current plan of care. D/C POC from [facility] was to hold lasix and lisinopril until follow up with PCP r/t SHERIE. Pt to have outpt follow up with nephrology and cardiology. 08/01/2019 Pt is alert and oriented x4, ambulating in the hallway with SBA and walker. U rostomy supplies are purchased and supplied by pt as he declines any use of Jake products. Additionally, pt has his own personal drainage system for the urostomy. Nursing was not comfortable using the system as it was brought from home and pt is being seen for rehab from sepsis infection. Pt was angry about not using his supplies as he was concerned there would be leaking through the night. Cleaning plan devised with chlorhexadin after nightly use. PT and PT to evaluate pt for services and will evaluate pt condition through admission. PCP Jani Sutton General - Cognitive Patterns Speech: Normal Thought Process: Intact Thought Content: Normal Orientation: Oriented x3 - Communication Preferred Language?: Bur[place]ian Property Assessment Monitor Required: No Level of Education: High School Preferred Method of Learning: Seeing, Doing Comprehension Ability: No Impairment Able to Read: Yes Able to Write: Yes Select best description of speech pattern: Clear Speech Ability to express ideas and wants: Understood Understanding verbal content: Understands - Mood and Behavior Patterns Appearance: Well Groomed Mood: Normal Attitude: Cooperative Motor Activity: Calm Affect: Appropriate - Psychosocial Well-Being Usual Living Arrangement: Spouse - Physical Functioning Activity Level: Up with assist x1 Turning: With partial assist Assistive Devices: 2 Wheel Walker Ambulation Ability: Needs Assist Bed Mobility: Needs Assist Transfer Ability: Needs Assist Bathing Ability: Needs Assist Personal Hygiene: Needs Assist Dressing Ability: Independent Eating (Feeding) Ability: Independent Toileting Ability: Needs Assist Administer Own Medication: Independent - Continence Bowel Pattern: Normal for Patient - Dental Status Unable to examine: No Broken or loosely fitting full or partial dentures: No No natural teeth or tooth fragment(s) (edentulous): No Abnormal mouth tissue (ulcers, masses, oral lesions, etc.): No Obvious or likely cavity or broken natural teeth: No Inflamed or bleeding gums or loose natural teeth: No Mouth/facial pain, discomfort or difficulty chewing: No - Nutrition Screening Poor oral intake > 1 week: Yes Unplanned weight loss in specified time frame: Yes Nutrition Support via tube feedings or parenteral nutrition: No Pressure Ulcer: Yes Significantly underweight define as BMI <18.5 kg/m2: No Albumin <2.5mg/dL: No Persistent nausea/vomiting/diarrhea >3 days: No Difficulty chewing/swallowing/mouth sores: No Admitting Diagnosis: Yes Nutrition Risk Score: High Risk Review of Systems Constitutional: Reports: Weakness. Denies: Chills, Fever Eyes: Denies: Eye discharge ENT: Denies: Congestion Respiratory: Denies: Cough, Dyspnea Cardiovascular: Denies: Arrhythmia, Chest pain, Dyspnea on exertion Endocrine: Reports: Fatigue Gastrointestinal: Denies: Abdominal pain, Constipation Genitourinary: Reports: Other (urostomy). Denies: Discharge Skin: Denies: Bruising Neurological: Denies: Abnormal gait Psychiatric: Denies: Anxiety Hematological/Lymphatic: Denies: Anemia Past Medical History - SOCIAL HISTORY Smoking Status: Never smoker Alcohol Use Comment: gin - SURGICAL HISTORY Past Surgical History: bilateral total knee. appy. bladder for CA. tonsils. hammer toe. cataract - RESPIRATORY Hx Respiratory Disorders: No - CARDIOVASCULAR Hx Cardio Disorders: No - NEURO Hx Neuro Disorders: No - GI Hx GI Disorders: Yes Hx Crohn's Disease: Yes Hx Reflux: Yes Hx Ulcer: Yes - Hx Genitourinary Disorders: Yes Hx Bladder Problem: Yes (CA) Hx Kidney Stones: Yes Hx UTI: Yes Comment:: left renal stent and urostomy - ENDOCRINE Hx Endocrine Disorders: Yes Hx Diabetes: Yes Hx Thyroid Disease: No - MUSCULOSKELETAL Hx Musculoskeletal Disorders: Yes Hx Arthritis: Yes - PSYCH Hx Psych Problems: No - HEMATOLOGY/ONCOLOGY Hx Hematology/Oncology Disorders: Yes Hx Cancer: Yes (Bladder) Hx Chemotherapy: No Hx Radiation Therapy: No Family Medical History Any Significant Family History?: No H&P Meds/Allergies - Allergies Allergies: Allergies Allergy/AdvReac Type Severity Reaction Status Date / Time amoxicillin [From Augmentin] Allergy RASH Verified 07/10/17 10:28 clavulanic acid Allergy RASH Verified 07/10/17 10:28 [From Augmentin] Penicillins Allergy RASH Verified 07/10/17 10:28 - Home Medications Previous Rx's Medication Instructions Recorded Ciprofloxacin HCl [Cipro] 500 mg PO Q12HR 7 Days #14 tablet 07/22/19 - Active Medications Active Medications: Current Medications Aspirin (Ecotrin (Ec)) 81 mg PO DAILY [facility] Cefdinir (Cefdinir) 300 mg PO BID [facility] Stop: 08/10/19 10:01 Last Admin: 07/31/19 21:23 Dose: 300 mg Documented by: Linezolid (Linezolid) 600 mg PO BID [facility] Stop: 08/10/19 10:01 Last Admin: 07/31/19 21:23 Dose: 600 mg Documented by: Metoprolol Tartrate (Lopressor) 50 mg PO BID [facility] Last Admin: 07/31/19 21:23 Dose: 50 mg Documented by: [facility] Last Admin: 08/01/19 06:06 Dose: 40 mg Documented by: Vitamin D (Vitamin D3) 2,000 unit PO DAILY [facility] Physical Exam - Vital Signs Vital Signs: Vital Signs - Last 24 Hrs Temp Pulse Resp BP Pulse Ox 07/31/19 20:00 97.7 F 60 20 148/90 98 07/31/19 16:20 97.5 F L 65 16 142/79 96 - General General Appearance: Alert, Oriented x3, Cooperative, No acute distress Limitations: No limitations - Head Head exam: Atraumatic, Normocephalic - Eye Eye exam: Normal appearance, PERRL Pupils: Normal accommodation - ENT ENT exam: Normal exam Ear exam: Normal external inspection Nasal Exam: Normal inspection Mouth exam: Normal external inspection Teeth exam: Normal inspection - Neck Neck exam: Normal inspection - Respiratory Respiratory exam: Normal lung sounds bilaterally, Accessory muscle use - Cardiovascular Cardiovascular Exam: Regular rate, Normal rhythm, Normal heart sounds Peripheral Pulses: 2+: Radial (R), Radial (L), Dorsalis Pedis (R), Dorsalis Pedis (L) - GI/Abdominal GI/Abdominal exam: Soft, Normal bowel sounds - Rectal Rectal exam: negative: Deferred - exam: negative: Deferred - Back Back exam: Reports: Normal inspection - Neurological Neurological exam: Alert, Altered - Psychiatric Psychiatric exam: Normal mood, Suicidal ideation. negative: Agitated - Skin Skin exam: Dry, Normal color, Warm H&P Results - Labs Result Diagrams: 08/07/19 06:00 08/07/19 06:00 Discharge Potential - Discharge Needs Community Services Used Prior to Admission: None Patient Discharge Plan Description: Return Home Community Services Needed at Discharge: Physical Therapy Plan - Swing Bed Certification Initial Certification Due: 07/31/19 14 Day Re-Cert Due: 08/14/19 44 Day Re-Cert Due: 09/13/19 74 Day Re-Cert Due: 10/13/19 - Detailed Diagnosis and Plan (1) Physical deconditioning Current Visit: Yes Status: Acute Base Code: R53.81 - OTHER MALAISE (2) DVT prophylaxis Current Visit: No Status: Acute Base Code: Z29.9 - ENCOUNTER FOR PROPHYLACTIC MEASURES, UNSPECIFIED Comment: 08/01/2019 -scds in bed, lovenox 30mg SQ (3) UTI (urinary tract infection) Current Visit: No Status: Acute Qualifiers: Urinary tract infection type: acute cystitis Hematuria presence: without hematuria Qualified Code(s): N30.00 - Acute cystitis without hematuria Base Code: N39.0 - URINARY TRACT INFECTION, SITE NOT SPECIFIED Comment: 08/01/2019 -Hx Bladder Ca., urostomy x18 years, no current treatment for Cancer -cefdinir and linzolid bid for 10 days -labs in 1 week (4) Diabetes mellitus, type II, insulin dependent Current Visit: No Status: Acute Base Code: E11.9 - TYPE 2 DIABETES MELLITUS WITHOUT COMPLICATIONS; Z79.4 - STORAGE AND BACKUP ADMINISTRATOR (CURRENT) USE OF INSULIN Comment: 08/05/2019 -continue holding metformin, adding s/s low dose -accucheck ac/hs (5) Full code status Current Visit: No Status: Acute Base Code: Z78.9 - OTHER SPECIFIED HEALTH STATUS Comment: 08/05/2019 -Full code status this admission
[2019-08-01] MEDS: ASPIRIN 81 MG TABEC PO SCH (10:24)
[2019-08-01] MEDS: CEFDINIR 300 MG CAPSULE PO SCH ×2 (10:24→23:32)
[2019-08-01] MEDS: LINEZOLID 600 MG TABLET PO SCH ×2 (10:24→23:32)
[2019-08-01] MEDS: METOPROLOL TART 50 MG TABLET PO SCH ×2 (10:25→23:33)
[2019-08-01] MEDS: CHOLECALCIFEROL 1,000 UNIT TABLET PO SCH (10:25)
--- NOTE | 2019-08-01 14:14 | Rehab Evaluation ---
Patient Information - Patient Information Diagnosis: Deconditioning due to sepsis and UTI Ordered Treatment: PT Evaluate and Treat Status: Initial Evaluation Surgery: No History: Detail (Pt reports that he presented to [facility] about 10 days ago w/back pain, transferred to [facility]; subsequently diagnosed with kidney stones, developed kidney infection which progressed to sepsis and required IV antibiotics. Now is on oral antibiotics and admitted for multiple rehab services.) Past Medical/Surgical Hx: PAST MEDICAL/SURGICAL HISTORY Past Surgical History bilateral total knee appy bladder for CA tonsils hammer toe cataract PMH - Respiratory Hx Respiratory Disorders No PMH - Cardiovascular Hx Cardiovascular Disorders No PMH - Neuro Hx Neurological Disorders No PMH - GI Hx Gastrointestinal Disorders Yes Hx Crohn's Disease Yes Hx Gastroesophageal Reflux Yes Hx Ulcer Yes PMH - Hx Genitourinary Disorders Yes Hx Bladder Problem Yes: CA Hx Kidney Stones Yes Hx Urinary Tract Infection Yes Comment: left renal stent and urostomy PMH - Endocrine Hx Endocrine Disorders Yes Hx Diabetes Yes Hx Thyroid Disease No PMH - Musculoskeletal Hx Musculoskeletal Disorders Yes Hx Arthritis Yes PMH - Psych Hx Psychiatric Problems No PMH - Hematology/Oncology Hx Hematology/Oncology Yes Disorders Hx Cancer Yes: Bladder Hx Chemotherapy No Hx Radiation Therapy No Premorbid Status: Detail (Pt was independent with all ADLs including self-care, mobility, driving, yardwork, and 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 He did not require assistive device for ambulation and had had no falls in the past year.) Social History: Detail (Pt lives with his Johanne in a two story home with a basement. He regularly uses the stairs (single handrail), as his office/den is upstairs, and he intentionally has his printer in the basement. Laundry and additional freezer and pantry is in basement. He has two steps to enter house, and two additional steps in the house, as they have a sunken living room. He has walk in shower w/grab bar, no bench, and regular height toilets w/o grab bars.) Precautions: [place], Fall - Time With Patient Total Time Spent With Patient (Min): 40 Treatment Procedures: Detail (PT evaluation) Subjective Information - Subjective Information Per Patient (Pt awake, alert, cooperative for therapy. He denies pain at rest or during assessment. He relays his history in good detail and his participates during the interview.) Objective Data - Pain Pain Present: No - Mental Status Patient Orientation: Oriented x3 - Visual Perception Appears within normal limits for therapeutic activities - ROM Within normal limits - Strength/Tone Not within normal limits (4-/5 in B hip flexion; 4/5 strength in B hip abduction, adduction, extension; 4+/5 in B knee flexion and extension, B ankle dorsiflexion.) - Coordination Appears within normal limits for therapeutic activities - Bed Mobility Independent - Transfers Needs Assist (VCs and contact guard assist to stand from bedside to front wheeled walker; required minimal assist to stand from recliner after sitting for 2-1/2 hours.) - Balance Balance Sitting: Good Balance Standing: Good (With front wheeled walker; formal assessment of balance to be completed later.) - Sensation Intact (In B LE's; he reports tingling/numbness in fingers of L hand for which he was receiving OT services prior to hospitalization.) - Gait Detail (Ambulated from bedside out to hallway to nrsg station and back to recliner with front wheeled walker and CGA (about 156 feet). No shortness of breath or undue fatigue noted.) Therapy Assessment - Therapy Assessment Detail (Pt exhibits mild proximal LE weakness, impaired transfers, and impaired activity tolerance consistent with prolonged hospitalization and illness. He will benefit from inpatient physical therapy to facilitate safe and independent return to home.) Problem List - Problem List Physical Therapy Problem List: Detail (1. Requires assist for transfers. 2. Impaired activity tolerance. 3. Requires assistive device for ambulation. 4. Mild proximal LE weakness.) Goals - Goals Physical Therapy Goals: 1. Complete functional balance assessment. 2. Pt will safely and independently perform all transfers (bed/chair/commode/car). 3. Pt will safely and independently ambulate over household/short community distances/surfaces w/least restrictive assistive device. 4. Pt will tolerate 20 minutes of low intensity therapeutic exercise without undue fatigue. 5. Pt will exhibit 4+/5 strength in B proximal lower extremities for greater stability with ambulation. Prognosis - Prognosis Good Plan - Plan Physical Therapy Plan: Pt will be seen 1-2 times/daily M-F for instruction in therapeutic exercise; transfer, gait, and balance training; endurance training to facilitate safe return to home environment.
[2019-08-01] MEDS ORDERED: DIPHENHYDRAMINE HCL 25 MG CAPSULE PO ONE (23:18)
[2019-08-02] MEDS: PANTOPRAZOLE SODIUM 40 MG TABLET PO SCH (06:33)
[2019-08-02] MEDS: CEFDINIR 300 MG CAPSULE PO SCH ×2 (09:35→21:02)
[2019-08-02] MEDS: ASPIRIN 81 MG TABEC PO SCH (09:36)
[2019-08-02] MEDS: CHOLECALCIFEROL 1,000 UNIT TABLET PO SCH (09:37)
[2019-08-02] MEDS: METOPROLOL TART 50 MG TABLET PO SCH ×2 (09:37→21:02)
[2019-08-02] MEDS: LINEZOLID 600 MG TABLET PO SCH ×2 (09:42→21:02)
--- NOTE | 2019-08-02 14:53 | Rehab Evaluation ---
Patient Information - Patient Information Diagnosis: Deconditioning due to sepsis and UTI Ordered Treatment: OT Evaluate and Treat Status: Initial Evaluation Surgery: No History: Detail (Pt reports that he presented to [facility] about 10 days ago w/back pain, transferred to [facility]; subsequently diagnosed with kidney stones, developed kidney infection which progressed to sepsis and required IV antibiotics. Now is on oral antibiotics and admitted for multiple rehab services.) Past Medical/Surgical Hx: PAST MEDICAL/SURGICAL HISTORY Past Surgical History bilateral total knee appy bladder for CA tonsils hammer toe cataract PMH - Respiratory Hx Respiratory Disorders No PMH - Cardiovascular Hx Cardiovascular Disorders No PMH - Neuro Hx Neurological Disorders No PMH - GI Hx Gastrointestinal Disorders Yes Hx Crohn's Disease Yes Hx Gastroesophageal Reflux Yes Hx Ulcer Yes PMH - Hx Genitourinary Disorders Yes Hx Bladder Problem Yes: CA Hx Kidney Stones Yes Hx Urinary Tract Infection Yes Comment: left renal stent and urostomy PMH - Endocrine Hx Endocrine Disorders Yes Hx Diabetes Yes Hx Thyroid Disease No PMH - Musculoskeletal Hx Musculoskeletal Disorders Yes Hx Arthritis Yes PMH - Psych Hx Psychiatric Problems No PMH - Hematology/Oncology Hx Hematology/Oncology Yes Disorders Hx Cancer Yes: Bladder Hx Chemotherapy No Hx Radiation Therapy No Premorbid Status: Detail (Pt was independent with all ADLs including self-care, mobility, driving, yardwork, and 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 He did not require assistive device for ambulation and had had no falls in the past year.) Social History: Detail (Pt lives with his Johanne in a two story home with a basement. He regularly uses the stairs (single handrail), as his office/den is upstairs, and he intentionally has his printer in the basement. Laundry and additional freezer and pantry is in basement. He has two steps to enter house, and two additional steps in the house, as they have a sunken living room. He has walk in shower w/grab bar, no bench, and regular height toilets w/o grab bars.) Precautions: [place], Fall - Time With Patient Total Time Spent With Patient (Min): 50 Treatment Procedures: Detail (OT eval low complexity) Subjective Information - Subjective Information Per Patient Objective Data - Pain Pain Present: No - Mental Status Patient Orientation: Oriented x3 - Visual Perception Appears within normal limits for therapeutic activities (Pt wears glasses) - ROM Within normal limits (Juan Ramon UE AROM WNL) - Strength/Tone Within normal limits (Juan Ramon UE strength 4+/5 throughout although pt feels his left hand is weak at times.) - Coordination Appears within normal limits for therapeutic activities (Juan Ramon hand coordination functional for light ADLs, pt reports difficulty at times due to new onset of numbness and tingling in left hand) - Bed Mobility Independent (Ind with supine to sit) - Transfers Independent (Ind with sit to stand from EOB and chair heights.) - Balance Balance Sitting: Good Balance Standing: Good - Sensation Intact - Gait Detail (Pt ambulating in room and hallway with 2 wheeled walker and supervision) - ADL's/IADL's Detail (Pt able to complete shaving, combing hair and oral hygiene tasks Indly at sink in sitting. Pt reports he was able to get dressed Indly yesterday but he is not feeling strong enough for a shower today.) Therapy Assessment - Therapy Assessment Detail (Pt is Ind with grooming and hygiene tasks although he presents with c/o decreased coordination in left hand. He is mildly fatigued with activity.) Problem List - Problem List Physical Therapy Problem List: Detail (1. Requires assist for transfers. 2. Impaired activity tolerance. 3. Requires assistive device for ambulation. 4. Mild proximal LE weakness.) Occupational Therapy Problem List: Detail (1. Mildly impaired coordination in left hand. 2. Decreased endurance needed for safe and Ind ADLs/IADLs. 3. Need to further assess showering and total body dressing.) Goals - Goals Physical Therapy Goals: 1. Complete functional balance assessment. 2. Pt will safely and independently perform all transfers (bed/chair/commode/car). 3. Pt will safely and independently ambulate over household/short community distances/surfaces w/least restrictive assistive device. 4. Pt will tolerate 20 minutes of low intensity therapeutic exercise without undue fatigue. 5. Pt will exhibit 4+/5 strength in B proximal lower extremities for greater stability with ambulation. Occupational Therapy Goals: 1. Pt will demonstrate Ind with showering and total body dressing. 2. Pt will demonstrate improved endurance to allow safe and Ind ADLs. Prognosis - Prognosis Good Plan - Plan Physical Therapy Plan: Pt will be seen 1-2 times/daily M-F for instruction in therapeutic exercise; transfer, gait, and balance training; endurance training to facilitate safe return to home environment. Occupational Therapy Plan: OT 2-4 times per week to address goals and problem list as above.
--- NOTE | 2019-08-02 16:12 | Physical Therapy Tx Note ---
Physical Therapy Tx Note - Treatment Note Tolerated: Good Total Time Spent With Patient: 30 Physical Therapy Tx Note: Detail (The patient was in bed when PT arrived. The patient was independent with supine to and from sit transfer. The patient ambulated with front wheeled walker a distance of 130 feet x 1 independently. The patient ambulated on three steps with use of railing and one cane with supervision for safety. The patient's daughter was present and observed st airclimbing. The patient's balance was tested using Tinetti Assessment Tool was / which is the moderate risk for falling category. PT completed MFR to L pects and upper trapezius and Medial scapular border to decrease symptoms of L hand tingling. The patient was also instructed in LE strengthening HEP including: ankle pumps, hip adductor squeezes, hip abduction with strap as resistance, hip marching and knee extension. The patient also completed scapular squeezes and backwards shoulder circles. The patient was left in chair with family.) Physical Therapy Problem List: Detail (1. Requires assist for transfers. 2. Impaired activity tolerance. 3. Requires assistive device for ambulation. 4. Mild proximal LE weakness.) Physical Therapy Goals: 1. Complete functional balance assessment. 2. Pt will safely and independently perform all transfers (bed/chair/commode/car). 3. Pt will safely and independently ambulate over household/short community distances/surfaces w/least restrictive assistive device. 4. Pt will tolerate 20 minutes of low intensity therapeutic exercise without undue fatigue. 5. Pt will exhibit 4+/5 strength in B proximal lower extremities for greater stability with ambulation. Physical Therapy Plan: Pt will be seen 1-2 times/daily M-F for instruction in therapeutic exercise; transfer, gait, and balance training; endurance training to facilitate safe return to home environment.
[2019-08-02] MEDS: DIPHENHYDRAMINE HCL 25 MG CAPSULE PO PRN (21:02)
[2019-08-03] MEDS: PANTOPRAZOLE SODIUM 40 MG TABLET PO SCH (06:42)
[2019-08-03] MEDS: CEFDINIR 300 MG CAPSULE PO SCH ×2 (10:58→21:04)
[2019-08-03] MEDS: ASPIRIN 81 MG TABEC PO SCH (10:58)
[2019-08-03] MEDS: METOPROLOL TART 50 MG TABLET PO SCH ×2 (10:58→21:03)
[2019-08-03] MEDS: LINEZOLID 600 MG TABLET PO SCH ×2 (10:58→21:05)
[2019-08-03] MEDS: CHOLECALCIFEROL 1,000 UNIT TABLET PO SCH (10:58)
[2019-08-03] MEDS: DIPHENHYDRAMINE HCL 25 MG CAPSULE PO PRN (21:03)
[2019-08-04] MEDS: PANTOPRAZOLE SODIUM 40 MG TABLET PO SCH (06:15)
[2019-08-04] MEDS: ACETAMINOPHEN 500 MG TABLET PO PRN (06:30)
[2019-08-04] MEDS: LINEZOLID 600 MG TABLET PO SCH ×2 (10:34→21:16)
[2019-08-04] MEDS: CHOLECALCIFEROL 1,000 UNIT TABLET PO SCH (10:34)
[2019-08-04] MEDS: ASPIRIN 81 MG TABEC PO SCH (10:34)
[2019-08-04] MEDS: METOPROLOL TART 50 MG TABLET PO SCH ×2 (10:35→21:16)
[2019-08-04] MEDS: CEFDINIR 300 MG CAPSULE PO SCH ×2 (10:42→21:37)
[2019-08-04] MEDS: DIPHENHYDRAMINE HCL 25 MG CAPSULE PO PRN (21:15)
[2019-08-05] MEDS: PANTOPRAZOLE SODIUM 40 MG TABLET PO SCH (06:46)
[2019-08-05] MEDS: ENOXAPARIN 30 MG/0.3 ML SYR SQ SCH (10:25)
[2019-08-05] MEDS: LINEZOLID 600 MG TABLET PO SCH ×2 (10:25→22:15)
[2019-08-05] MEDS: CHOLECALCIFEROL 1,000 UNIT TABLET PO SCH (10:25)
[2019-08-05] MEDS: ASPIRIN 81 MG TABEC PO SCH (10:26)
[2019-08-05] MEDS: CEFDINIR 300 MG CAPSULE PO SCH ×2 (10:26→22:14)
[2019-08-05] MEDS: METOPROLOL TART 50 MG TABLET PO SCH ×2 (10:26→22:15)
--- NOTE | 2019-08-05 11:24 | Occupational Therapy Tx Note ---
Occupational Therapy Tx Note - Treatment Note Tolerated: Good Total Time Spent With Patient: 65 (ADL) Occupational Therapy Treatment Note: Detail (S: Pt resting in bed. He reports he took a shower at home this weekend and it went well but he was fatigued. O: Supine to sit Indly. Pt unhooked catheter and leg strap and doffed socks Indly. Pt amb to toilet with 2 wheeled walker Indly and completed toileting Indly. Pt doffed shirt, underwear and shorts Indly. Pt amb to shower with 2 wheeled walker and completed showering in standing with walker and grab bar. Pt was short of breath throughout treatment and required verbal cues for modified breathing techniques. Pt dried self in standing with one episode of slight loss of balance while standing on one foot. Pt amb to EOB and in sitting he was Ind with drying feet and donning t-shirt, underwear, pants and socks. Pt did require multiple rest breaks. Reviewed energy conservation techniques, diaphramatic breathing techniques and recommended shower seat for patients home shower. Pt verbalized understanding of all education. Sit to supine Indly and pt left supine with call button in reach. A: Pt is Ind with total body dressing and showering although he did have increased fatigue and shortness of breath. Recommend shower seat for home.) Occupational Therapy Problem List: Detail (1. Mildly impaired coordination in left hand. 2. Decreased endurance needed for safe and Ind ADLs/IADLs. 3. Need to further assess showering and total body dressing.) Occupational Therapy Goals: 1. Pt will demonstrate Ind with showering and total body dressing. 2. Pt will demonstrate improved endurance to allow safe and Ind ADLs. Prognosis: Good Occupational Therapy Plan: OT 2-4 times per week to address goals and problem list as above.
--- NOTE | 2019-08-05 14:58 | Physical Therapy Tx Note ---
Physical Therapy Tx Note - Treatment Note Tolerated: Fair Total Time Spent With Patient: 20 Physical Therapy Tx Note: Detail (The patient was in bed and was fatigued from shower this am. The patient ambulated 67 feet with wheeled walker independently, and with standard cane 67 feet with CG due to occasional stagger steps. The patient exhibited shortness of breath after ambulating. PT completed manual therapy techniques (MFR) to left pectoralis musculature and upper trapezius. Patient no longer complains of L hand pain and reports numbness is decreased but still present. Pt. was left in chair with call light within reach and company present.) Physical Therapy Problem List: Detail (1. Requires assist for transfers. 2. Impaired activity tolerance. 3. Requires assistive device for ambulation. 4. Mild proximal LE weakness.) Physical Therapy Goals: 1. Complete functional balance assessment. 2. Pt will safely and independently perform all transfers (bed/chair/commode/car). 3. Pt will safely and independently ambulate over household/short community distances/surfaces w/least restrictive assistive device. 4. Pt will tolerate 20 minutes of low intensity therapeutic exercise without undue fatigue. 5. Pt will exhibit 4+/5 strength in B proximal lower extremities for greater stability with ambulation. Physical Therapy Plan: Pt will be seen 1-2 times/daily M-F for instruction in therapeutic exercise; transfer, gait, and balance training; endurance training to facilitate safe return to home environment.
[2019-08-05 16:24] LABS: ABSOLUTE NEUTROPHIL COUNT 5.63; HEMATOCRIT 39.7 % (42.0-52.0); HEMOGLOBIN 12.8 gm/dl (14.0-18.0); MEAN CELL VOLUME 93.9 fl (81-97); MEAN CORPUSCULAR HGB CONC 32.2 g/dl (32-36); MEAN PLATELET VOLUME 9.1 fl (7.4-10.4); PLATELET COUNT 226 K/uL (130-400); RED BLOOD COUNT 4.23 M/uL (4.40-5.70); RED CELL DISTRIBUTION WIDTH 14.9 % (11.5-14.5); WHITE BLOOD COUNT W/O DIFF 8.5 K/uL (4.2-12.2)
[2019-08-05 16:27] LABS: MEAN CORPUSCULAR HEMOGLOBIN 30.2 pg (27-33)
[2019-08-05 16:34] LABS: BLOOD UREA NITROGEN 25 mg/dL (8-23); EST GLOMERULAR FILTRATION RATE > 60 mL/min; PLATELET ESTIMATE NORMAL (NORMAL)
[2019-08-05 16:35] LABS: TOTAL PROTEIN 6.1 g/dL (6.6-8.7)
[2019-08-05 16:37] LABS: GLUCOSE,RANDOM 139 mg/dL (74-109)
[2019-08-05 16:39] LABS: ALT/SGPT 27 U/L (<41); AST/SGOT 19 U/L (10.0-50.0)
[2019-08-05 16:40] LABS: ALB/GLOB RATIO 1.2 (1.1-1.8); ALBUMIN 3.3 g/dL (4.0-5.0); ALKALINE PHOSPHATASE 52 U/L (40-129)
[2019-08-05] MEDS: DIPHENHYDRAMINE HCL 25 MG CAPSULE PO PRN (22:18)
[2019-08-06] MEDS: PANTOPRAZOLE SODIUM 40 MG TABLET PO SCH (06:15)
[2019-08-06] MEDS: CEFDINIR 300 MG CAPSULE PO SCH ×2 (09:12→21:23)
[2019-08-06] MEDS: CHOLECALCIFEROL 1,000 UNIT TABLET PO SCH (09:12)
[2019-08-06] MEDS: METOPROLOL TART 50 MG TABLET PO SCH ×2 (09:13→21:23)
[2019-08-06] MEDS: ASPIRIN 81 MG TABEC PO SCH (09:13)
[2019-08-06] MEDS: LINEZOLID 600 MG TABLET PO SCH ×2 (09:14→21:23)
[2019-08-06] MEDS: ENOXAPARIN 30 MG/0.3 ML SYR SQ SCH (09:14)
[2019-08-06] MEDS: NOVOLOG FLEXPEN (INSULIN ASPART) 100 UNITS/ML SQ SCH ×3 (10:33→18:03)
--- NOTE | 2019-08-06 13:51 | Physical Therapy Tx Note ---
Physical Therapy Tx Note - Treatment Note Tolerated: Good Total Time Spent With Patient: 15 Physical Therapy Tx Note: Detail (The patient was seen in PT Rehab gym after OT treatment. The patient is complaining of L lower back pain.The patient ambulated with front wheeled walker 25 feet x 1. Shortness of breath was noted after pt. ambulated. The patient pedaled on the Nu step (LE's only) x 5 minutes. The patient ambulated 5 feet to chair and declined further activity secondary to fatigue. The patient is exhibiting increased fatigue today and shortness of breath. Patient's nurse was notified of patient's complaint of lower back pain.) Physical Therapy Problem List: Detail (1. Requires assist for transfers. 2. Impaired activity tolerance. 3. Requires assistive device for ambulation. 4. Mild proximal LE weakness.) Physical Therapy Goals: 1. Complete functional balance assessment. 2. Pt will safely and independently perform all transfers (bed/chair/commode/car). 3. Pt will safely and independently ambulate over household/short community distances/surfaces w/least restrictive assistive device. 4. Pt will tolerate 20 minutes of low intensity therapeutic exercise without undue fatigue. 5. Pt will exhibit 4+/5 strength in B proximal lower extremities for greater stability with ambulation. Physical Therapy Plan: Pt will be seen 1-2 times/daily M-F for instruction in therapeutic exercise; transfer, gait, and balance training; endurance training to facilitate safe return to home environment.
--- NOTE | 2019-08-06 14:36 | Occupational Therapy Tx Note ---
Occupational Therapy Tx Note - Treatment Note Tolerated: Fair Total Time Spent With Patient: 35 (ther activity) Occupational Therapy Treatment Note: Detail (S: Pt resting in recliner, reports he slept really well but today he has increased left lower back/hip pain. He reports left hand weakness and tingling continue. O: Sit to stand with verbal cues for technique and pt amb 10 feet to wheelchair with 2 wheeled walker and CG assist. Pt transported to rehab gym via wheelchair. He completed kandace UE repetitive reaching and pinching with resisted clothespins x 35 reps on and 35 reps off with right UE and 21 reps on and 21 reps off with left UE. Pt was unable to pinch higher resistance clothespins with left hand due to weakness and tingling. Provided pt with red theraputty and he completed 4 min of nuclear security officer, rolling and pinch with left hand after instruction for proper exercises. Pt left with PT in rehab gym. A: Pt continues to be very fatigued which seems worse today. Left hand pain is improved but he still has significant weakness. Nursing notified of pts c/o back pain.) Occupational Therapy Problem List: Detail (1. Mildly impaired coordination in left hand. 2. Decreased endurance needed for safe and Ind ADLs/IADLs. 3. Need to further assess showering and total body dressing.) Occupational Therapy Goals: 1. Pt will demonstrate Ind with showering and total body dressing. 2. Pt will demonstrate improved endurance to allow safe and Ind ADLs. Prognosis: Good Occupational Therapy Plan: OT 2-4 times per week to address goals and problem li st as above.
[2019-08-06 18:34] LABS: URINE APPEARANCE SL CLOUDY; URINE BILIRUBIN NEGATIVE (NEGATIVE); URINE BLOOD MODERATE-LYSED (NEGATIVE); URINE COLOR YELLOW; URINE GLUCOSE (UA) NEGATIVE (NEGATIVE); URINE KETONE NEGATIVE (NEGATIVE); URINE LEUKOCYTE ESTERASE LARGE (NEGATIVE); URINE NITRITE POSITIVE (NEGATIVE); URINE UROBILINOGEN 0.2 E.U./dL (0.20 - 1.00)
[2019-08-06 18:35] LABS: URINE RBC 0 - 2 (NONE SEEN)
[2019-08-06 18:36] LABS: URINE BACTERIA 2+; URINE EPITHELIAL CELLS NONE SEEN (FEW); URINE WBC 16 - 20 (0-2/hpf)
[2019-08-06] MEDS: DIPHENHYDRAMINE HCL 25 MG CAPSULE PO PRN (21:23)
[2019-08-07] MEDS: PANTOPRAZOLE SODIUM 40 MG TABLET PO SCH (06:37)
[2019-08-07] MEDS: NOVOLOG FLEXPEN (INSULIN ASPART) 100 UNITS/ML SQ SCH ×3 (08:54→19:06)
[2019-08-07] MEDS: ACETAMINOPHEN 500 MG TABLET PO PRN (09:15)
[2019-08-07 09:49] LABS: ABSOLUTE NEUTROPHIL COUNT 4.96; BASO % 0.3 % (0-6); EOS % 1.5 % (0-6); GRAN % 74.3 % (47-80); HEMATOCRIT 38.9 % (42.0-52.0); HEMOGLOBIN 12.4 gm/dl (14.0-18.0); LYMPH % 11.8 % (16-45); MEAN CELL VOLUME 95.6 fl (81-97); MEAN CORPUSCULAR HGB CONC 31.9 g/dl (32-36); MEAN PLATELET VOLUME 8.9 fl (7.4-10.4); MONO % 12.1 % (0-9); PLATELET COUNT 217 K/uL (130-400); RED BLOOD COUNT 4.07 M/uL (4.40-5.70); RED CELL DISTRIBUTION WIDTH 14.7 % (11.5-14.5); WHITE BLOOD COUNT W/O DIFF 6.7 K/uL (4.2-12.2)
[2019-08-07 09:50] LABS: MEAN CORPUSCULAR HEMOGLOBIN 30.4 pg (27-33)
[2019-08-07 09:59] LABS: BLOOD UREA NITROGEN 24 mg/dL (8-23); CREATININE 1.1 mg/dL (0.7-1.2); EST GLOMERULAR FILTRATION RATE > 60 mL/min
[2019-08-07 10:01] LABS: GLUCOSE,RANDOM 206 mg/dL (74-109)
[2019-08-07] MEDS: ASPIRIN 81 MG TABEC PO SCH (10:35)
[2019-08-07] MEDS: CIPROFLOXACIN HCL 500 MG TABLET PO SCH ×2 (10:35→21:31)
[2019-08-07] MEDS: METOPROLOL TART 50 MG TABLET PO SCH (10:36)
[2019-08-07] MEDS: LINEZOLID 600 MG TABLET PO SCH ×2 (10:37→21:31)
[2019-08-07] MEDS: CHOLECALCIFEROL 1,000 UNIT TABLET PO SCH (10:37)
[2019-08-07] MEDS: ENOXAPARIN 30 MG/0.3 ML SYR SQ SCH (10:37)
--- NOTE | 2019-08-07 10:50 | Physician Progress Note ---
Subjective - Date Date of Progress Note: 08/06/19 - Admitting Diagnosis Diagnosis: deconditioning due to sepsis and uti - Subjective Events since last encounter: Patient reported to PT and nursing he is having new left lower back and flank pa in, feeling weaker than he has been since admission. He otherwise denies chills, body aches, nausea, vomiting. Nursing did provide a hot pack to his back which did improve the pain significantly. No blood noted in urostomy bag. Nursing Care Plan Problem List Activity Intolerance (Swing Bed) Start: 07/31/19 17:49 Freq: Status: Active Protocol: Created 07/31/19 17:49 KMC (Rec: 07/31/19 17:49 KM ASTS-1) Altered Thought Process (Fall Risk) Start: 07/31/19 17:49 Freq: Status: Complete Protocol: Created 07/31/19 17:49 KMC (Rec: 07/31/19 17:49 KM ASTS-1) Edit Status 08/03/19 18:11 SRP (Rec: 08/03/19 18:11 SRP [id number]) Active=>Complete Impaired Mobility (Fall Risk) Start: 07/31/19 17:49 Freq: Status: Active Protocol: Created 07/31/19 17:49 KMC (Rec: 07/31/19 17:49 KM ASTS-1) Knowledge Deficit (Swing Bed) Start: 07/31/19 17:49 Freq: Status: Active Protocol: Created 07/31/19 17:49 KMC (Rec: 07/31/19 17:49 KM ASTS-1) Pain (Swing Bed) Start: 07/31/19 17:49 Freq: Status: Active Protocol: Created 07/31/19 17:49 KMC (Rec: 07/31/19 17:49 KM ASTS-1) Risk for Injury (Fall Risk) Start: 07/31/19 17:49 Freq: Status: Active Protocol: Created 07/31/19 17:49 KMC (Rec: 07/31/19 17:49 KM ASTS-1) Skin Integrity, Impaired (Swing Bed) Start: 08/02/19 05:02 Freq: Status: Active Protocol: Created 08/02/19 05:02 LPR (Rec: 08/02/19 05:02 LPR ASTS-1) - Subjective Detail Constitutional: Reports: Malaise, Weakness. Denies: Chills Respiratory: Denies: Cough Musculoskeletal: Reports: Back pain Psychiatric: Reports: Depression (depressed mood due to slow physical progression to baseline independence) General - Cognitive Patterns Speech: Normal Thought Process: Intact Thought Content: Normal - Communication Select best description of speech pattern: Clear Speech Ability to express ideas and wants: Understood Understanding verbal content: Understands - Mood and Behavior Patterns Appearance: Well Groomed Mood: Normal Attitude: Cooperative Motor Activity: Calm Affect: Appropriate Hallucinations: Denies - Physical Functioning Activity Level: Up with assist x1 Turning: Self ad latonia ROM Ability: Within Normal Limits Assistive Devices: Straight Cane, 2 Wheel Walker Ambulation Ability: Independent Bed Mobility: Independent Transfer Ability: Needs Assist Bathing Ability: Needs Assist Personal Hygiene: Independent Dressing Ability: Independent Eating (Feeding) Ability: Independent Toileting Ability: Needs Assist Administer Own Medication: Needs Assist - Continence Bowel Pattern: Normal for Patient Meds/Allergies - Allergies Allergies Allergy/AdvReac Type Severity Reaction Status Date / Time amoxicillin [From Augmentin] Allergy RASH Verified 07/10/17 10:28 clavulanic acid Allergy RASH Verified 07/10/17 10:28 [From Augmentin] Penicillins Allergy RASH Verified 07/10/17 10:28 - Active Medications Current Medications Acetaminophen (Tylenol 500mg Tab) 1,000 mg PO Q6H PRN PRN Reason: PAIN - MILD TO MODERATE (1-7) Last Admin: 08/07/19 09:15 Dose: 1,000 mg Documented by: Aspirin (Ecotrin (Ec)) 81 mg PO DAILY [facility] Last Admin: 08/07/19 10:35 Dose: 81 mg Documented by: Ciprofloxacin (Cipro) 500 mg PO Q12HR [facility] Last Admin: 08/07/19 10:35 Dose: 500 mg Documented by: Diphenhydramine HCl (Benadryl Capsule) 25 mg PO Q6H PRN PRN Reason: INSOMNIA Last Admin: 08/06/19 21:23 Dose: 25 mg Documented by: Enoxaparin Sodium (Lovenox) 30 mg SQ DAILY [facility] Last Admin: 08/07/19 10:37 Dose: 30 mg Documented by: Insulin Aspart (Novolog Flexpen) 1 unit SQ TIDINS [facility]; Protocol Last Admin: 08/07/19 08:54 Dose: 1 unit Documented by: Linezolid (Linezolid) 600 mg PO BID [facility] Stop: 08/10/19 10:01 Last Admin: 08/07/19 10:37 Dose: 600 mg Documented by: Metoprolol Tartrate (Lopressor) 50 mg PO BID [facility] Last Admin: 08/07/19 10:36 Dose: 50 mg Documented by: Pantoprazole Sodium (Protonix) 40 mg PO DAILYAC [facility] Last Admin: 08/07/19 06:37 Dose: 40 mg Documented by: Vitamin D (Vitamin D3) 2,000 unit PO DAILY [facility] Last Admin: 08/07/19 10:37 Dose: 2,000 unit Documented by: Objective - Vital Signs Vital Signs: Vital Signs - Last 24 Hrs Temp Pulse Resp BP Pulse Ox 08/07/19 10:00 99.1 F 69 15 97/71 94 L 08/06/19 20:00 97.7 F 81 18 146/71 96 - General General Appearance: Alert, Oriented x3, Cooperative, No acute distress Limitations: No limitations - Head Head exam: Atraumatic, Normocephalic - Eye Eye exam: Normal appearance, PERRL Pupils: Normal accommodation - ENT ENT exam: Normal exam Ear exam: Normal external inspection Nasal Exam: Normal inspection Mouth exam: Normal external inspection Teeth exam: Normal inspection - Neck Neck exam: Normal inspection - Respiratory Respiratory exam: Normal lung sounds bilaterally, Accessory muscle use - Cardiovascular Cardiovascular Exam: Regular rate, Normal rhythm, Normal heart sounds Peripheral Pulses: 2+: Radial (R), Radial (L), Dorsalis Pedis (R), Dorsalis Pedis (L) - GI/Abdominal GI/Abdominal exam: Soft, Normal bowel sounds - Rectal Rectal exam: negative: Deferred - exam: Other (urostomy site beefy red, urine straw colored with scattered sedement). negative: Deferred - Back Back exam: Reports: Normal inspection, Paraspinal tenderness (left lumbar par aspinal tenderness). Denies: CVA tenderness (R), CVA tenderness (L) - Neurological Neurological exam: Alert, Altered - Psychiatric Psychiatric exam: Normal mood, Suicidal ideation. negative: Agitated - Skin Skin exam: Dry, Normal color, Warm H&P Results - Labs Result Diagrams: 08/07/19 09:40 08/07/19 09:09 Labs Last 24 Hours: Laboratory Results - last 24 hr 08/06/19 08/06/19 08/07/19 17:52 Unknown 08:44 WBC RBC Hgb Hct MCV MCH MCHC RDW Plt Count MPV Gran % Lymphocytes % Monocytes % Eosinophils % Basophils % Absolute Neutrophils Sodium Potassium Chloride Carbon Dioxide Anion Gap BUN Creatinine Estimated GFR POC Glucose 120 H 152 H Random Glucose Calcium Urine Color Yellow Urine Appearance Sl cloudy Urine pH 6.5 Ur Specific [place] 1.010 Urine Protein 30 mg/dl H Urine Glucose (UA) Negative Urine Ketones Negative Urine Blood Moderate-lysed H Urine Nitrite Positive H Urine Bilirubin Negative Urine Urobilinogen 0.2 Ur Leukocyte Esterase Large H Urine RBC 0 - 2 Urine WBC 16 - 20 Ur Epithelial Cells None seen Urine Bacteria 2+ 08/07/19 08/07/19 09:09 09:40 WBC 6.7 RBC 4.07 L Hgb 12.4 L Hct 38.9 L MCV 95.6 MCH 30.4 MCHC 31.9 L RDW 14.7 H Plt Count 217 MPV 8.9 Gran % 74.3 Lymphocytes % 11.8 L Monocytes % 12.1 H Eosinophils % 1.5 Basophils % 0.3 Absolute Neutrophils 4.96 Sodium 135 L Potassium 4.5 Chloride 100 Carbon Dioxide 22.0 Anion Gap 13.0 BUN 24 H Creatinine 1.1 Estimated GFR > 60 POC Glucose Random Glucose 206 H Calcium 8.8 Urine Color Urine Appearance Urine pH Ur Specific [place] Urine Protein Urine Glucose (UA) Urine Ketones Urine Blood Urine Nitrite Urine Bilirubin Urine Urobilinogen Ur Leukocyte Esterase Urine RBC Urine WBC Ur Epithelial Cells Urine Bacteria Discharge Potential - Discharge Needs Community Services Used Prior to Admission: None Patient Discharge Plan Description: Return Home Community Services Needed at Discharge: Physical Therapy Discharge Needs Comment: Provided patient with list of home care providers-he will select one and let CM know on Monday. Has had in the past following TKAs, but does not remember which company or state a preference. Plan - Swing Bed Certification Initial Certification Due: 07/31/19 14 Day Re-Cert Due: 08/14/19 44 Day Re-Cert Due: 09/13/19 74 Day Re-Cert Due: 10/13/19 - Detailed Diagnosis and Plan (1) Flank pain Current Visit: Yes Status: Acute Base Code: R10.9 - UNSPECIFIED ABDOMINAL PAIN Comment: 08/06/19 - U/A with C&S if indicated - Appears to musculoskeletal, continue hot pack for conservative approach (2) Physical deconditioning Current Visit: Yes Status: Acute Base Code: R53.81 - OTHER MALAISE Comment: 08/06/19 - Continue PT/OT - Rule out UTI
--- NOTE | 2019-08-07 10:50 | Physician Progress Note ---
Subjective - Date Date of Progress Note: 08/07/19 - Admitting Diagnosis Diagnosis: deconditioning due to sepsis and uti - Subjective Events since last encounter: Reports still feeling weak, mood is low due to slow physical progress. Urine cul ture pending. No new fevers, abdominal pain, nausea, chills, malaise Nursing Care Plan Problem List Activity Intolerance (Swing Bed) Start: 07/31/19 17:49 Freq: Status: Active Protocol: Created 07/31/19 17:49 KM (Rec: 07/31/19 17:49 [facility] ASTS-1) Altered Thought Process (Fall Risk) Start: 07/31/19 17:49 Freq: Status: Complete Protocol: Created 07/31/19 17:49 KM (Rec: 07/31/19 17:49 [facility] ASTS-1) Edit Status 08/03/19 18:11 SRP (Rec: 08/03/19 18:11 SRP [id number]) Active=>Complete Impaired Mobility (Fall Risk) Start: 07/31/19 17:49 Freq: Status: Active Protocol: Created 07/31/19 17:49 KM (Rec: 07/31/19 17:49 [facility] ASTS-1) Knowledge Deficit (Swing Bed) Start: 07/31/19 17:49 Freq: Status: Active Protocol: Created 07/31/19 17:49 KM (Rec: 07/31/19 17:49 [facility] ASTS-1) Pain (Swing Bed) Start: 07/31/19 17:49 Freq: Status: Active Protocol: Created 07/31/19 17:49 [facility] (Rec: 07/31/19 17:49 [facility] ASTS-1) Risk for Injury (Fall Risk) Start: 07/31/19 17:49 Freq: Status: Active Protocol: Created 07/31/19 17:49 KM (Rec: 07/31/19 17:49 [facility] ASTS-1) Skin Integrity, Impaired (Swing Bed) Start: 08/02/19 05: 02 Freq: Status: Active Protocol: Created 08/02/19 05:02 LPR (Rec: 08/02/19 05:02 LPR ASTS-1) General - Cognitive Patterns Speech: Normal Thought Process: Intact Thought Content: Normal - Communication Select best description of speech pattern: Clear Speech Ability to express ideas and wants: Understood Understanding verbal content: Understands - Mood and Behavior Patterns Appearance: Well Groomed Mood: Normal Attitude: Cooperative Motor Activity: Calm Affect: Appropriate Hallucinations: Denies - Physical Functioning Activity Level: Up with assist x1 Turning: Self ad latonia ROM Ability: Within Normal Limits Assistive Devices: Straight Cane, 2 Wheel Walker Ambulation Ability: Independent Bed Mobility: Independent Transfer Ability: Needs Assist Bathing Ability: Needs Assist Personal Hygiene: Independent Dressing Ability: Independent Eating (Feeding) Ability: Independent Toileting Ability: Needs Assist Administer Own Medication: Needs Assist - Continence Bowel Pattern: Normal for Patient Meds/Allergies - Allergies Allergies Allergy/AdvReac Type Severity Reaction Status Date / Time amoxicillin [From Augmentin] Allergy RASH Verified 07/10/17 10:28 clavulanic acid Allergy RASH Verified 07/10/17 10:28 [From Augmentin] Penicillins Allergy RASH Verified 07/10/17 10:28 - Active Medications Current Medications Acetaminophen (Tylenol 500mg Tab) 1,000 mg PO Q6H PRN PRN Reason: PAIN - MILD TO MODERATE (1-7) Last Admin: 08/07/19 09:15 Dose: 1,000 mg Documented by: Aspirin (Ecotrin (Ec)) 81 mg PO DAILY [facility] Last Admin: 08/07/19 10:35 Dose: 81 mg Documented by: Ciprofloxacin (Cipro) 500 mg PO Q12HR [facility] Last Admin: 08/07/19 10:35 Dose: 500 mg Documented by: Diphenhydramine HCl (Benadryl Capsule) 25 mg PO Q6H PRN PRN Reason: INSOMNIA Last Admin: 08/06/19 21:23 Dose: 25 mg Documented by: Enoxaparin Sodium (Lovenox) 30 mg SQ DAILY [facility] Last Admin: 08/07/19 10:37 Dose: 30 mg Documented by: Insulin Aspart (Novolog Flexpen) 1 unit SQ TIDINS [facility]; Protocol Last Admin: 08/07/19 08:54 Dose: 1 unit Documented by: Linezolid (Linezolid) 600 mg PO BID [facility] Stop: 08/10/19 10:01 Last Admin: 08/07/19 10:37 Dose: 600 mg Documented by: Metoprolol Tartrate (Lopressor) 50 mg PO BID [facility] Last Admin: 08/07/19 10:36 Dose: 50 mg Documented by: Pantoprazole Sodium (Protonix) 40 mg PO DAILYAC [facility] Last Admin: 08/07/19 06:37 Dose: 40 mg Documented by: Vitamin D (Vitamin D3) 2,000 unit PO DAILY [facility] Last Admin: 08/07/19 10:37 Dose: 2,000 unit Documented by: Objective - Vital Signs Vital Signs: Vital Signs - Last 24 Hrs Temp Pulse Resp BP Pulse Ox 08/07/19 10:00 99.1 F 69 15 97/71 94 L 08/06/19 20:00 97.7 F 81 18 146/71 96 - General General Appearance: Alert, Oriented x3, Cooperative, No acute distress Limitations: No limitations - Head Head exam: Atraumatic, Normocephalic - Eye Eye exam: Normal appearance, PERRL Pupils: Normal accommodation - ENT ENT exam: Normal exam Ear exam: Normal external inspection Nasal Exam: Normal inspection Mouth exam: Normal external inspection Teeth exam: Normal inspection - Neck Neck exam: Normal inspection - Respiratory Respiratory exam: Normal lung sounds bilaterally, Accessory muscle use - Cardiovascular Cardiovascular Exam: Regular rate, Normal rhythm, Normal heart sounds Peripheral Pulses: 2+: Radial (R), Radial (L), Dorsalis Pedis (R), Dorsalis Pedis (L) - GI/Abdominal GI/Abdominal exam: Soft, Normal bowel sounds - Rectal Rectal exam: negative: Deferred - exam: Other (urostomy site beefy red, urine straw colored with scattered sedement). negative: Deferred - Back Back exam: Reports: Normal inspection, Paraspinal tenderness (left lumbar paraspinal tenderness). Denies: CVA tenderness (R), CVA tenderness (L) - Neurological Neurological exam: Alert, Altered - Psychiatric Psychiatric exam: Normal mood, Suicidal ideation. negative: Agitated - Skin Skin exam: Dry, Normal color, Warm H&P Results - Labs Result Diagrams: 08/07/19 09:40 08/07/19 09:09 Labs Last 24 Hours: Laboratory Results - last 24 hr 08/06/19 08/06/19 08/07/19 17:52 Unknown 08:44 WBC RBC Hgb Hct MCV MCH MCHC RDW Plt Count MPV Gran % Lymphocytes % Monocytes % Eosinophils % Basophils % Absolute Neutrophils Sodium Potassium Chloride Carbon Dioxide Anion Gap BUN Creatinine Estimated GFR POC Glucose 120 H 152 H Random Glucose Calcium Urine Color Yellow Urine Appearance Sl cloudy Urine pH 6.5 Ur Specific [place] 1.010 Urine Protein 30 mg/dl H Urine Glucose (UA) Negative Urine Ketones Negative Urine Blood Moderate-lysed H Urine Nitrite Positive H Urine Bilirubin Negative Urine Urobilinogen 0.2 Ur Leukocyte Esterase Large H Urine RBC 0 - 2 Urine WBC 16 - 20 Ur Epithelial Cells None seen Urine Bacteria 2+ 08/07/19 08/07/19 09:09 09:40 WBC 6.7 RBC 4.07 L Hgb 12.4 L Hct 38.9 L MCV 95.6 MCH 30.4 MCHC 31.9 L RDW 14.7 H Plt Count 217 MPV 8.9 Gran % 74.3 Lymphocytes % 11.8 L Monocytes % 12.1 H Eosinophils % 1.5 Basophils % 0.3 Absolute Neutrophils 4.96 Sodium 135 L Potassium 4.5 Chloride 100 Carbon Dioxide 22.0 Anion Gap 13.0 BUN 24 H Creatinine 1.1 Estimated GFR > 60 POC Glucose Random Glucose 206 H Calcium 8.8 Urine Color Urine Appearance Urine pH Ur Specific [place] Urine Protein Urine Glucose (UA) Urine Ketones Urine Blood Urine Nitrite Urine Bilirubin Urine Urobilinogen Ur Leukocyte Esterase Urine RBC Urine WBC Ur Epithelial Cells Urine Bacteria Discharge Potential - Discharge Needs Community Services Used Prior to Admission: None Patient Discharge Plan Description: Return Home Community Services Needed at Discharge: Physical Therapy Discharge Needs Comment: Provided patient with list of home care providers-he wi ll select one and let CM know on Monday. Has had in the past following TKAs, but does not remember which company or state a preference. 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 Urine culture from [facility] 07/23/19 prior to transfer to [facility] for urosepsis showed Klebsiella, noted resistance for cephalosporins. Cefdinir discontinued and start Ciprofloxacin. BUN and Cr normal, GFR>60. (2) Flank pain Current Visit: Yes Status: Acute Base Code: R10.9 - UNSPECIFIED ABDOMINAL PAIN Comment: 08/06/19 - U/A with C&S if indicated - Appears to musculoskeletal, continue hot pack for conservative approach (3) Physical deconditioning Current Visit: Yes Status: Acute Base Code: R53.81 - OTHER MALAISE Comment: 08/06/19 - Continue PT/OT - Rule out UTI
--- NOTE | 2019-08-07 11:36 | Occupational Therapy Tx Note ---
Occupational Therapy Tx Note - Treatment Note Tolerated: Fair, Poor Total Time Spent With Patient: 43 (1 MTT, 1 TA, 1 ADL) Occupational Therapy Treatment Note: Detail (S: Pt reclining in chair upon therapist arrival, reports he is very fatigued, weak, sore, and feeling down about his condition. O: Manual therapeutic techniques - myofacial release/ trigger point release to left scalene, pec release, upper traps to decrease compression of brachail plexus/artery/vein which may be causing soreness, parasthesias and coolness of L hand and arm. Ther act - OT demo'd neck stretches laterally to R side to stretch tight L scalenes; shoulder shrugs/ pull backs in seated and ceiling punches in supine to strengthen posterior shld muscles to improve posture and decrease brachial plexus compression. Pt demos/verbalizes understanding but too fatigued to trial past scalene stretches. ADL - To improve fxl endurance, Pt completes teeth brushing seated in bedside chair with setup assist, 2 short rest breaks, and increased effort d/t fatigue/weakness. Pt completes fxl TF from recliner to EOB w/ FWW and CGA, increased time and effort. EOB to supine w/ MIN assist d/t fatigue when lifting legs into bed. A: Pt demos increased fatigue and weakness this date, d/t and causing decreased emotional state. Multiple trigger points palpated in left scalene and L pec, released but not fully w/ MTT. P: Continue POC and progress as Pt tolerates.) Occupational Therapy Problem List: Detail (1. Mildly impaired coordination in left hand. 2. Decreased endurance needed for safe and Ind ADLs/IADLs. 3. Need to further assess showering and total body dressing.) Occupational Therapy Goals: 1. Pt will demonstrate Ind with showering and total body dressing. 2. Pt will demonstrate improved endurance to allow safe and Ind ADLs. Prognosis: Moderate Occupational Therapy Plan: OT 2-4 times per week to address goals and problem list as above.
--- NOTE | 2019-08-07 14:49 | Physical Therapy Tx Note ---
Physical Therapy Tx Note - Treatment Note Tolerated: Good Total Time Spent With Patient: 30 Physical Therapy Tx Note: Detail (The patient was in bed when PT arrived. The patient reports he no longer has L lower back pain. The patient ambulated 120 feet with rollator walker independently and 120 feet with standard cane with CG/ supervision for safety. The patient exhibited shortness of breath after ambulating. The patient's LE strength was retested: hip flexors and adductors 4+/5, hip abductors 4/5, knee and ankle musculature 5/5. The patient completed LE strengthening exercises ie: resistive hip abduction, knee flexion and extension all x 10 reps and hip adductor squeezes x 10 reps. The pt. exhibits improved LE strength and improved endurance for physical activity. The patient reports he feels good about mobility when going home.) Physical Therapy Problem List: Detail (1. Requires assist for transfers. 2. Impaired activity tolerance. 3. Requires assistive device for ambulation. 4. Mild proximal LE weakness.) Physical Therapy Goals: 1. Complete functional balance assessment. (Goal Met). 2. Pt will safely and independently perform all transfers (bed/chair/commode/car). (Goal Met). 3. Pt will safely and independently ambulate over household/short community distances/surfaces w/least restrictive assistive device.(Goal Met). 4. Pt will tolerate 20 minutes of low intensity therapeutic exercise without undue fatigue. (Goal Met-inconsistently). 5. Pt will exhibit 4+/5 strength in B proximal lower extremities for greater stability with ambulation. Physical Therapy Plan: Anticipate discharge from [facility] tomorrow.
[2019-08-07] MEDS: DIPHENHYDRAMINE HCL 25 MG CAPSULE PO PRN (21:31)
[2019-08-08] MEDS: PANTOPRAZOLE SODIUM 40 MG TABLET PO SCH (06:11)
[2019-08-08 06:29] LABS: BLOOD UREA NITROGEN 26 mg/dL (8-23); EST GLOMERULAR FILTRATION RATE > 60 mL/min; GLUCOSE,RANDOM 128 mg/dL (74-109)
[2019-08-08] MEDS: NOVOLOG FLEXPEN (INSULIN ASPART) 100 UNITS/ML SQ SCH ×2 (10:05→14:34)
--- NOTE | 2019-08-08 11:26 | Discharge Summary ---
Providers Discharge Summary Date: 08/08/19 Date of admission: 07/31/19 15:58 Expected Date of Discharge: 08/08/19 Attending physician: АЛЕКСАНДР TORRES Primary care physician: АЛЕКСАНДР TORRES Physical Exam - Vital Signs Vital Signs: Vital Signs - Last 24 Hrs Temp Pulse Resp BP BP Pulse Ox 08/08/19 08:00 99.5 F 68 17 102/67 94 L 08/07/19 20:00 97.9 F 71 18 136/79 95 08/07/19 14:41 99.1 F 108/69 08/07/19 12:40 65 16 108/69 94 L - General General Appearance: Alert, Oriented x3, Cooperative, No acute distress Limitations: No limitations - Head Head exam: Atraumatic, Normocephalic - Eye Eye exam: Normal appearance, PERRL Pupils: Normal accommodation - ENT ENT exam: Normal exam Ear exam: Normal external inspection Nasal Exam: Normal inspection Mouth exam: Normal external inspection Teeth exam: Normal inspection - Neck Neck exam: Normal inspection - Respiratory Respiratory exam: Normal lung sounds bilaterally, Accessory muscle use - Cardiovascular Cardiovascular Exam: Regular rate, Normal rhythm, Normal heart sounds Peripheral Pulses: 2+: Radial (R), Radial (L), Dorsalis Pedis (R), Dorsalis Pedis (L) - GI/Abdominal GI/Abdominal exam: Soft, Normal bowel sounds - Rectal Rectal exam: negative: Deferred - exam: Other (urostomy site beefy red). negative: Deferred - Back Back exam: Reports: Normal inspection. Denies: CVA tenderness (R), CVA tenderness (L), Paraspinal tenderness - Neurological Neurological exam: Alert, Altered - Psychiatric Psychiatric exam: Normal mood, Suicidal ideation. negative: Agitated - Skin Skin exam: Dry, Normal color, Warm Hospitalization - Hospitalization Admission Diagnosis: deconditioning due to sepsis and uti - Problem List (1) Physical deconditioning Current Visit: Yes Status: Acute Base Code: R53.81 - OTHER MALAISE Comment: 08/08/19 - Has met PT/OT goals and stable for dischage home (2) UTI (urinary tract infection) Current Visit: Yes Status: Acute Discharge Diagnosis: Urinary tract infection type: acute cystitis Hematuria presence: without hematuria Qualified Code(s): N30.00 - Acute cystitis without hematuria Base Code: N39.0 - URINARY TRACT INFECTION, SITE NOT SPECIFIED Comment: 08/08/2019 -Hx Bladder Ca., urostomy x18 years, no current treatment for Cancer -Linezolid for urosepsis and positive blood cultures, total 20 days treatment -U/A 08/06/19 + nitrites, + leukocystes, + protein, culture pending -[facility] rcords reviewed, noted urine culture skin margarito. Urine culture from [facility] 07/23/19 prior to transfer to [facility] for urosepsis showed Klebsiella, noted resistance for cephalosporins. Cefdinir discontinued and start Ciprofloxacin for total 10 day therapy. Cr normal, GFR>60. (3) Flank pain Current Visit: Yes Status: Acute Base Code: R10.9 - UNSPECIFIED ABDOMINAL PAIN Comment: 08/08/19 - Appears to musculoskeletal, continue hot pack for conservative approach (4) Acute renal insufficiency Current Visit: No Status: Acute Base Code: N28.9 - DISORDER OF KIDNEY AND URETER, UNSPECIFIED Comment: 08/08/19 - Stabalized Bun/Cr: 26/1.0 at discharge - May resume Metformin 250mg QOD as per home dosing (5) Diabetes mellitus, type II, insulin dependent Current Visit: No Status: Acute Base Code: E11.9 - TYPE 2 DIABETES MELLITUS WITHOUT COMPLICATIONS; Z79.4 - LATEX CASTER (CURRENT) USE OF INSULIN Comment: 08/08/2019 -Resume Metformin home dosing at discharge -accucheck ac/hs- blood sugars have remaind stable (6) Radicular pain in right arm Current Visit: No Status: Acute Base Code: M79.2 - NEURALGIA AND NEURITIS, UNSPECIFIED Comment: 07/24/19: - Stable since starting Neurontin 100mg TID, Tylenol 650mg Q4H PRN - Right shoulder pain with radiation to the hand. No neck pain. - PT/OT consulted will continue with daily therapy. (7) DVT prophylaxis Current Visit: No Status: Acute Base Code: Z29.9 - ENCOUNTER FOR PROPHYLACTIC MEASURES, UNSPECIFIED Comment: 08/08/2019 -scds in bed, lovenox 30mg SQ (8) Full code status Current Visit: No Status: Acute Base Code: Z78.9 - OTHER SPECIFIED HEALTH STATUS Comment: 08/08/2019 -Full code status this admission - Hospitalization Course Disposition: Home, Self-Care Hospital Course: 84 yo male presents to [facility] for swing bed admission s/p prolong hospital stay for sepsis, UTI, and SHERIE. 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 pt has appointment for urology stent exchange with [place] urologist. Infectious disease was consulted at [facility] before d/c for abx use and created current plan of care. D/C POC from [facility] was to hold lasix and lisinopril until follow up with PCP r/t SHERIE. Pt to have outpt follow up with nephrology and cardiology. 08/01/2019 Pt is alert and oriented x4, ambulating in the hallway with SBA and walker. Urostomy supplies are purchased and supplied by pt as he declines any use of [place] products. Additionally, pt has his own personal drainage system for the urostomy. Nursing was not comfortable using the system as it was brought fro m home and pt is being seen for rehab from sepsis infection. Pt was angry about not using his supplies as he was concerned there would be leaking through the night. Cleaning plan devised with chlorhexadin after nightly use. PT and PT to evaluate pt for services and will evaluate pt condition through admission. 08/08/2019- Swing bed admission without significant event. Patient progress well, although slowly, with PT/OT and did reach discharge goals. 08/06/2019 patient reported new left-sided flank pain. Examination at that time revealed musculoskeletal discomfort to left lumbar paraspinal musculature that was improved with the application of warm moist heat. A urinalysis was collected at that time due to hx urosepsis which showed suspicious UTI. Urine culture pending at the time of discharge. Records from [facility] prior to his acute care transfer [facility] acute inpatient stay were reviewed. Urine culture resulted 07/23/2019 showed growth of Klebsiella which was resistant to cephalosporins. His Cefdinir was subsequently discontinued and he was placed on oral Ciprofloxacin per culture sensitivity. He has not developed any new fevers and vital signs remained stable during his stay. His diabetes was under good control with the use of S/S insulin as Metformin was on hold due to SHERIE. Lasix also on hold due to same. Renal function stabilized at time of discharge with creatinine normal and GFR>60 and may resume home dosing of Metformin, Lasix, and Potassium. Chemical stress test completed today, no evidence of ischemia, EF normal, will follow up with [facility] cardiology as outpatient. Advise he follow up with community specialists as scheduled as well as PCP as scheduled PCP: Dr Александр Torres Selected Entries 08/06/19 20:00 Temperature 97.7 F Pulse Rate [ 81 Pulse Ox Probe] Blood Pressure 146/71 [Left Arm] Pulse Ox 96 Laboratory Tests 08/05/19 08/05/19 08/06/19 16:18 16:18 08:30 WBC 8.5 RBC 4.23 L Hgb 12.8 L Plt Count 226 Sodium BUN 25 H Creatinine Estimated GFR POC Glucose 163 H Urine Protein Urine Blood Urine Nitrite Ur Leukocyte Esterase Urine RBC Urine WBC Ur Epithelial Cells Urine Bacteria 08/06/19 08/06/19 08/07/19 17:52 Unknown 08:44 WBC RBC Hgb Plt Count Sodium BUN Creatinine Estimated GFR POC Glucose 120 H 152 H Urine Protein 30 mg/dl H Urine Blood Moderate-lysed H Urine Nitrite Positive H Ur Leukocyte Esterase Large H Urine RBC 0 - 2 Urine WBC 16 - 20 Ur Epithelial Cells None seen Urine Bacteria 2+ 08/07/19 08/07/19 08/07/19 09:40 12:17 17:30 WBC 6.7 RBC 4.07 L Hgb 12.4 L Plt Count 217 Sodium BUN Creatinine Estimated GFR POC Glucose 93 117 H Urine Protein Urine Blood Urine Nitrite Ur Leukocyte Esterase Urine RBC Urine WBC Ur Epithelial Cells Urine Bacteria 08/07/19 08/08/19 21:29 06:10 WBC RBC Hgb Plt Count Sodium 135 L BUN 26 H Creatinine 1.0 Estimated GFR > 60 POC Glucose 130 H Urine Protein Urine Blood Urine Nitrite Ur Leukocyte Esterase Urine RBC Urine WBC Ur Epithelial Cells Urine Bacteria Abnormal Labs: Abnormal Lab Results 08/05/19 08/05/19 08/06/19 Range/Units 16:18 16:18 08:30 RBC 4.23 L (4.40-5.70) M/uL Hgb 12.8 L (14.0-18.0) gm/dl Hct 39.7 L (42.0-52.0) % MCHC (32-36) g/dl RDW 14.9 H (11.5-14.5) % Lymphocytes % (16-45) % Monocytes % (0-9) % Lymphocytes 14.0 L (16-45) % Monocytes 17.0 H (0-9) % Sodium (136-145) mmol/L BUN 25 H (8-23) mg/dL POC Glucose 163 H (70-110) mg/dL Random Glucose 139 H (74-109) mg/dL Calcium 8.6 L (8.8-10.2) mg/dL Total Protein 6.1 L (6.6-8.7) g/dL Albumin 3.3 L (4.0-5.0) g/dL Urine Protein (NEGATIVE) Urine Blood (NEGATIVE) Urine Nitrite (NEGATIVE) Ur Leukocyte Esterase (NEGATIVE) 08/06/19 08/06/19 08/07/19 Range/Units 17:52 Unknown 08:44 RBC (4.40-5.70) M/uL Hgb (14.0-18.0) gm/dl Hct (42.0-52.0) % MCHC (32-36) g/dl RDW (11.5-14.5) % Lymphocytes % (16-45) % Monocytes % (0-9) % Lymphocytes (16-45) % Monocytes (0-9) % Sodium (136-145) mmol/L BUN (8-23) mg/dL POC Glucose 120 H 152 H (70-110) mg/dL Random Glucose (74-109) mg/dL Calcium (8.8-10.2) mg/dL Total Protein (6.6-8.7) g/dL Albumin (4.0-5.0) g/dL Urine Protein 30 mg/dl H (NEGATIVE) Urine Blood Moderate-lysed H (NEGATIVE) Urine Nitrite Positive H (NEGATIVE) Ur Leukocyte Esterase Large H (NEGATIVE) 08/07/19 08/07/19 08/07/19 Range/Units 09:09 09:40 17:30 RBC 4.07 L (4.40-5.70) M/uL Hgb 12.4 L (14.0-18.0) gm/dl Hct 38.9 L (42.0-52.0) % MCHC 31.9 L (32-36) g/dl RDW 14.7 H (11.5-14.5) % Lymphocytes % 11.8 L (16-45) % Monocytes % 12.1 H (0-9) % Lymphocytes (16-45) % Monocytes (0-9) % Sodium 135 L (136-145) mmol/L BUN 24 H (8-23) mg/dL POC Glucose 117 H (70-110) mg/dL Random Glucose 206 H (74-109) mg/dL Calcium (8.8-10.2) mg/dL Total Protein (6.6-8.7) g/dL Albumin (4.0-5.0) g/dL Urine Protein (NEGATIVE) Urine Blood (NEGATIVE) Urine Nitrite (NEGATIVE) Ur Leukocyte Esterase (NEGATIVE) 08/07/19 08/08/19 Range/Units 21:29 06:10 RBC (4.40-5.70) M/uL Hgb (14.0-18.0) gm/dl Hct (42.0-52.0) % MCHC (32-36) g/dl RDW (11.5-14.5) % Lymphocytes % (16-45) % Monocytes % (0-9) % Lymphocytes (16-45) % Monocytes (0-9) % Sodium 135 L (136-145) mmol/L BUN 26 H (8-23) mg/dL POC Glucose 130 H (70-110) mg/dL Random Glucose 128 H (74-109) mg/dL Calcium 8.4 L (8.8-10.2) mg/dL Total Protein (6.6-8.7) g/dL Albumin (4.0-5.0) g/dL Urine Protein (NEGATIVE) Urine Blood (NEGATIVE) Urine Nitrite (NEGATIVE) Ur Leukocyte Esterase (NEGATIVE) Discharge Medications - Discharge Medications Prescriptions: Ciprofloxacin HCl [Cipro] 500 mg PO Q12HR 9 Days #18 tablet Linezolid 600 mg PO BID #4 tablet Metoprolol Tartrate [Lopressor] 50 mg PO BID 30 Days #60 tablet Home Medications: Ambulatory Orders Cholecalciferol (Vitamin D3) [Vitamin D3] 2,000 unit PO DAILY 07/10/17 [Last Taken 1 Day Ago ~07/09/17] Cranberry Fruit Extract [Cranberry] 500 mg PO DAILY 07/10/17 [Last Taken 1 Day Ago ~07/09/17] Esomeprazole Magnesium [Nexium] 40 mg PO DAILYAC 07/10/17 [Last Taken 1 Day Ago ~07/09/17] Rosuvastatin Calcium [Crestor] 2.5 mg PO Q48H 07/10/17 [Last Taken 1 Day Ago ~07/09/17] Furosemide [Lasix] 20 mg PO Q48H 07/22/19 [Last Taken Unknown] Aspirin Enteric-Coated [Ecotrin (EC)] 81 mg PO DAILY tabec 08/08/19 [Last Taken Unknown] Ciprofloxacin HCl [Cipro] 500 mg PO Q12HR 9 Days #18 tablet 08/08/19 [Last Taken Unknown] Linezolid 600 mg PO BID #4 tablet 08/08/19 [Last Taken Unknown] Metoprolol Tartrate [Lopressor] 50 mg PO BID 30 Days #60 tablet 08/08/19 [Last Taken Unknown] Discharge Plan - Discharge Instructions Activity at Discharge: As Per Physical Therapy, Increase Activity as Tolerated Diet at Discharge: Advance to Usual Diet Instructions: Urinary Tract Infection in Men (DC) Additional Instructions: Appointments have been scheduled for you as follows: -Dr. Blanca at [facility] Specialty Clinic on 08/15/19 at 9:30AM -Dr. Torres at [facility] Family Practice on Monday08/16/19 at 8:20AM [facility] to schedule [facility] and OT. They can be reached at [phone]. November resume: Lasix 20mg every other day Metformin 250mg every other day Potassium 20mEq every other day Cranberry and Vitamin D3 supplement Resume diet as tolerated Resume activity as tolerated Thank you for choosing [facility]!! Quality Measures - Quality Measures Quality Measures: Advance Directives, Documentation of Current Medications in Medical Record, Elder Maltreatment Screen and Follow-Up Plan, Screening for High Blood Pressure and F/U Documented - Current Medications Quality Measure: Measure #130: Documentation of Current Medications Documentation of Current Medications: <Current Medications Documented/Reviewed> [B5135] - Blood Pressure Screening Quality Measure: Screening for High Blood Pressure and Follow-Up Documented Does Patient Have Any of the Following: No, Active Dx of HTN Blood Pressure Classification: Normal BP Reading Systolic Measurement: 108 Diastolic Measurement: 69 Screening for High Blood Pressure: < Normal BP, F/U Not Required > [G4791] - Advance Directives Quality Measure: Measure #47: Care Plan Advance Directives Established: Yes Advance Directives Information Provided To Patient: No Advance Directives on File: No Living Will: Yes Power of Pediatric Speech Language Pathologist: Yes Power of Pediatric Speech Language Pathologist Name: kenna dawn Advance Care Planning: <Care Plan/Decision Maker Documented; Discussed & Documented> [1123F] - Elder Abuse Suspicion Index Screening: Elder Abuse Suspicion Index Screening Rely on people for bathing, dressing, shopping, banking, etc: No Prevented from getting food, clothes, medication, etc: No Made to feel shamed or threatened by someone: No Forced to sign papers or use money against will: No Feel afraid, touched in ways not wanted or hurt physically: No Poor eye contact, withdrawn, malnourished, cuts or bruises: No Screening Result: Negative result EASI Reference Information: Lauren PALENCIA, Vivi C, Rob D, Tara Bennett.Development and validation of a tool to assist physicians identification of elder abuse: The Elder Abuse Suspicion Index (EASI ). Journal of Elder Abuse and Neglect, 2008; 20 (3): 276-300. - Elder Maltreatment Screen Quality Measures: Elder Maltreatment Screen and Follow-Up Plan Elder Maltreatment Screen: <Negative, No Follow-Up Plan Required> [G8754]
[2019-08-08] MEDS: CHOLECALCIFEROL 1,000 UNIT TABLET PO SCH (12:22)
[2019-08-08] MEDS: ASPIRIN 81 MG TABEC PO SCH (12:22)
[2019-08-08] MEDS: ENOXAPARIN 30 MG/0.3 ML SYR SQ SCH (12:22)
[2019-08-08] MEDS: LINEZOLID 600 MG TABLET PO SCH (12:22)
[2019-08-08] MEDS: CIPROFLOXACIN HCL 500 MG TABLET PO SCH (12:22)
--- NOTE | 2019-08-09 09:57 | Rehab Discharge Summary ---
Patient Information - Patient Information Diagnosis: Deconditioning due to sepsis and UTI Ordered Treatment: PT Evaluate and Treat Surgery: No History: Detail (Pt reports that he presented to [facility] about 10 days ago w/back pain, transferred to [facility]; subsequently diagnosed with kidney stones, developed kidney infection which progressed to sepsis and required IV antibiotics. Now is on oral antibiotics and admitted for multiple rehab services.) Past Medical/Surgical Hx: PAST MEDICAL/SURGICAL HISTORY Past Surgical History bilateral total knee appy bladder for CA tonsils hammer toe cataract PMH - Respiratory Hx Respiratory Disorders No PMH - Cardiovascular Hx Cardiovascular Disorders No PMH - Neuro Hx Neurological Disorders No PMH - GI Hx Gastrointestinal Disorders Yes Hx Crohn's Disease Yes Hx Gastroesophageal Reflux Yes Hx Ulcer Yes PMH - Hx Genitourinary Disorders Yes Hx Bladder Problem Yes: CA Hx Kidney Stones Yes Hx Urinary Tract Infection Yes Comment: left renal stent and urostomy PMH - Endocrine Hx Endocrine Disorders Yes Hx Diabetes Yes Hx Thyroid Disease No PMH - Musculoskeletal Hx Musculoskeletal Disorders Yes Hx Arthritis Yes PMH - Psych Hx Psychiatric Problems No PMH - Hematology/Oncology Hx Hematology/Oncology Yes Disorders Hx Cancer Yes: Bladder Hx Chemotherapy No Hx Radiation Therapy No Premorbid Status: Detail (Pt was independent with all ADLs including self-care, mobility, driving, yardwork, and 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 He did not require assistive device for ambulation and had had no falls in the past year.) Social History: Detail (Pt lives with his Johanne in a two story home with a basement. He regularly uses the stairs (single handrail), as his office/den is upstairs, and he intentionally has his printer in the basement. Laundry and additional freezer and pantry is in basement. He has two steps to enter house, and two additional steps in the house, as they have a sunken living room. He has walk in shower w/grab bar, no bench, and regular height toilets w/o grab bars.) Precautions: [place], Fall Subjective Information - Subjective Information Per Patient (The patient had varying complaints of fatigue and L side lower back pain, however back pain was greatly decreased prior to discharged. The patient had less complaints of L hand pain and numbness but continued to complain of m ild numbness and decreased L hand fine motor coordination.) Objective Data - Mental Status Patient Orientation: Oriented x3 - ROM Within normal limits - Strength/Tone Not within normal limits (The patient's bilateral LE strength was : hip flexors, adductors 4+/5, hip abductors 4/5, knee and ankle musculature 5/5.) - Bed Mobility Independent (The patient was independent with supine to and from sit transfer.) - Transfers Independent (The patient was independent with sit to and from stand transfer and toilet transfer. The patient denied difficulty with car transfer during his home visit.) - Balance Balance Sitting: Good Balance Standing: Fair (The patient using the [place] Assessment Tool was 19/28 which is in the moderate risk for falling category.) - Gait Detail (The patient ambulates with front wheeled walker a distance of 120 feet independently. The patient also ambulates with standard cane a distance of 100 feet with supervision for safety. The patient ambulated on 3 steps with use one railing and standard cane with supervision for safety. The patient and family denied difficulty ambulating on stairs in his home environment on home visit.) Therapy Assessment - Therapy Assessment Detail (The patient exhibited improved LE strength and was independent with mobility. The patient's endurance for physical activity was variable and the patient continues to be in the moderate risk for falling category. Home PT was recommended.) Patient Education - Patient Education Teaching Topic: Exercise/Activity (The patient is independent with seated LE strengthening exercise program including ankle pumps, hip marching, hip adductor squeezes, resisted hip abduction, LAQ, and heel slides.) Problem List - Problem List Physical Therapy Problem List: Detail (1. Requires assist for transfers. 2. Impaired activity tolerance. 3. Requires assistive device for ambulation. 4. Mild proximal LE weakness.) Occupational Therapy Problem List: Detail (1. Mildly impaired coordination in left hand. 2. Decreased endurance needed for safe and Ind ADLs/IADLs. 3. Need to further assess showering and total body dressing.) Goals - Goals Physical Therapy Goals: 1. Complete functional balance assessment. (Goal Met). 2. Pt will safely and independently perform all transfers (bed/chair/commode/car). (Goal Met). 3. Pt will safely and independently ambulate over household/short community distances/surfaces w/least restrictive assistive device.(Goal Met). 4. Pt will tolerate 20 minutes of low intensity therapeutic exercise without undue fatigue. (Goal Met-inconsistently). 5. Pt will exhibit 4+/5 strength in B proximal lower extremities for greater stability with ambulation.(Goal partially met- hip abductors 4/5) Occupational Therapy Goals: 1. Pt will demonstrate Ind with showering and total body dressing. 2. Pt will demonstrate improved endurance to allow safe and Ind ADLs. Plan - Plan Physical Therapy Plan: Patient discharged to home. Patient to receive Home PT. Occupational Therapy Plan: OT 2-4 times per week to address goals and problem list as above.
--- NOTE | 2019-08-09 10:13 | Rehab Discharge Summary ---
Patient Information - Patient Information Diagnosis: Deconditioning due to sepsis and UTI Ordered Treatment: OT Evaluate and Treat Surgery: No History: Detail (Pt reports that he presented to [facility] about 10 days ago w/back pain, transferred to [facility]; subsequently diagnosed with kidney stones, developed kidney infection which progressed to sepsis and required IV antibiotics. Now is on oral antibiotics and admitted for multiple rehab services.) Past Medical/Surgical Hx: PAST MEDICAL/SURGICAL HISTORY Past Surgical History bilateral total knee appy bladder for CA tonsils hammer toe cataract PMH - Respiratory Hx Respiratory Disorders No PMH - Cardiovascular Hx Cardiovascular Disorders No PMH - Neuro Hx Neurological Disorders No PMH - GI Hx Gastrointestinal Disorders Yes Hx Crohn's Disease Yes Hx Gastroesophageal Reflux Yes Hx Ulcer Yes PMH - Hx Genitourinary Disorders Yes Hx Bladder Problem Yes: CA Hx Kidney Stones Yes Hx Urinary Tract Infection Yes Comment: left renal stent and urostomy PMH - Endocrine Hx Endocrine Disorders Yes Hx Diabetes Yes Hx Thyroid Disease No PMH - Musculoskeletal Hx Musculoskeletal Disorders Yes Hx Arthritis Yes PMH - Psych Hx Psychiatric Problems No PMH - Hematology/Oncology Hx Hematology/Oncology Yes Disorders Hx Cancer Yes: Bladder Hx Chemotherapy No Hx Radiation Therapy No Premorbid Status: Detail (Pt was independent with all ADLs including self-care, mobility, driving, yardwork, and 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 He did not require assistive device for ambulation and had had no falls in the past year.) Social History: Detail (Pt lives with his Johanne in a two story home with a basement. He regularly uses the stairs (single handrail), as his office/den is upstairs, and he intentionally has his printer in the basement. Laundry and additional freezer and pantry is in basement. He has two steps to enter house, and two additional steps in the house, as they have a sunken living room. He has walk in shower w/grab bar, no bench, and regular height toilets w/o grab bars.) Precautions: [place], Fall Objective Data - Pain Pain Present: No - Mental Status Patient Orientation: Oriented x3 - Visual Perception Appears within normal limits for therapeutic activities - ROM Within normal limits (Juan Ramon UE AROM WNL) - Strength/Tone Within normal limits (Juan Ramon US strength 4 to 4+/5 throughout although pt reports left hand feels weak at times.) - Coordination Appears within normal limits for therapeutic activities (WNL for self cares although pt reports difficulty with left hand at times.) - Bed Mobility Independent (Ind with supine to sit) - Transfers Independent (Ind with sit to stand from various heights.) - Balance Balance Sitting: Good Balance Standing: Fair - Sensation Intact (Pt reports tingling in left hand at times.) - Gait Detail (Pt ambulating in room with 2 wheeled walker and supervision.) - ADL's/IADL's Detail (Pt is Ind with showering in standing and total body dressing. Recommended a shower seat for safety and energy conservation at home as pt does demonstrate decreased overall endurance.) Therapy Assessment - Therapy Assessment Detail (Pt is Ind with self cares and improved endurance overall.) Problem List - Problem List Physical Therapy Problem List: Detail (1. Requires assist for transfers. 2. Impaired activity tolerance. 3. Requires assistive device for ambulation. 4. Mild proximal LE weakness.) Occupational Therapy Problem List: Detail (1. Mildly impaired coordination in left hand. 2. Decreased endurance needed for safe and Ind ADLs/IADLs. 3. Need to further assess showering and total body dressing.) Goals - Goals Physical Therapy Goals: 1. Complete functional balance assessment. (Goal Met). 2. Pt will safely and independently perform all transfers (bed/chair/commode/car). (Goal Met). 3. Pt will safely and independently ambulate over household/short community distances/surfaces w/least restrictive assistive device.(Goal Met). 4. Pt will tolerate 20 minutes of low intensity therapeutic exercise without undue fatigue. (Goal Met-inconsistently). 5. Pt will exhibit 4+/5 strength in B proximal lower extremities for greater stability with ambulation. Occupational Therapy Goals: Goals Met: 1. Pt will demonstrate Ind with showering and total body dressing. 2. Pt will demonstrate improved endurance to allow safe and Ind ADLs. Prognosis - Prognosis Good Plan - Plan Physical Therapy Plan: Anticipate discharge from [facility] tomorrow. Occupational Therapy Plan: Pt discharged home on 08/08/19.
--- NOTE | 2019-08-12 13:27 | Physician Addendum ---
Addendum (Physician) Urine culture reviewed, culture positive for pseudomonas 25,000-50,000, resistant to Cipro in which he was discharged on pending result of culture. Spoke with Mayuri, daughter, as given permission and reported findings. She states he is gaining strength at home and is starting to climb stairs to the second story of his house. No new fevers, nausea, vomiting, change in appetite, change in cognition. Advised he stop the Cipro and follow up with PCP as scheduled 08/12/19 13:25
== END 2019-08-08 14:45 | disposition home or self-care (01) | DRG 689 ==
LOC: EEVIPCON → MEDSURG 15:58
PROVIDERS: ADMIT Internal Medicine; ATTEND Internal Medicine
DX: N30.00 Acute cystitis without hematuria (principal); A41.9 Sepsis, unspecified organism; N17.9 Acute kidney failure, unspecified; E11.9 Type 2 diabetes mellitus without complications; Z79.4 Long term (current) use of insulin; I10 Essential (primary) hypertension; E78.5 Hyperlipidemia, unspecified; Z96.0 Presence of urogenital implants; Z85.51 Personal history of malignant neoplasm of bladder
CPT/HCPCS: 36416; 80048; 80053; 81001; 82310; 82948; 85025; 85027; 97140; 97530; 99306; 99310; 99316; J1650